=== PATIENT | male | born 1960 | race Hispanic/Latino ===

== ENCOUNTER 2018-09-26 09:53 | Emergency (ER) | payer BC ==
--- NOTE | 2018-09-26 10:54 | Emergency Department Report ---
Minor Respiratory - HPI Chief Complaint: Upper Respiratory Infection Stated Complaint: AYDEN/FEVER Time Seen by Provider: 09/26/18 10:38 Duration: 3 Days Pain Location: Facial Minor Respiratory: Yes Rhinorrhea, Yes Able to Tolerate Fluids, Yes Cough (minor and non productive), Yes Shortness of Breath, No Sore Throat, No Ear Pain, No Sick Contacts, No Hemoptysis, No Chest Pain, No Fever ED Review of Systems ROS: Stated complaint: AYDEN/FEVER Other details as noted in HPI Comment: All other systems reviewed and negative ED Past Medical Hx - Past Medical History Previous Medical History?: Yes Hx Hypertension: Yes - Surgical History Past Surgical History?: No - Social History Smoking Status: Never Smoker Substance Use Type: None - Medications Home Medications: Home Medications Medication Instructions Recorded Confirmed Last Taken Type Acetaminophen/Codeine [Tylenol 1 tab PO Q6H PRN #12 tab 09/08/18 Unknown Rx /Codeine # 3 tab] Ibuprofen [Motrin 800 MG tab] 800 mg PO Q8HR PRN #21 tablet 09/08/18 Unknown Rx ALBUTEROL Inhaler (OR & NICU) 2 puff IH QID PRN #1 inhalation 09/26/18 Unknown Rx [ProAir HFA Inhaler] Amoxicillin/Potassium Clav 1 each PO BID #14 tablet 09/26/18 Unknown Rx [Augmentin 875-125 Tablet] HYDROcodone/APAP 5-325 [[place] 1 each PO Q4HR PRN #1 tablet 09/26/18 Unknown Rx 5/325] predniSONE [Deltasone] 20 mg PO QDAY #5 tab 09/26/18 Unknown Rx Minor Respiratory Exam - Exam General: Vital signs noted. No distress. Alert and acting appropriately. HEENT: Yes Moist Mucous Membranes, Yes Maxillary Tenderness (with decreased transillumination of the sinuses), No Pharyngeal Erythema, No Pharyngeal Exudates, No Rhinorrhea, No Conjuctival Injection, No Frontal Tenderness Ear: Neither TM Bulge, Neither TM Erythema, Neither EAC Pain, Neither EAC Discharge Neck: Yes Supple, No Adenopathy Lungs: Yes Good Air Exchange, No Wheezes, No Ronchi, No Stridor, No Cough, No Labored Respirations, No Retractions, No Use of Accessory Muscles, No Other Abnormal Lung Sounds Heart: Yes Regular, No Murmur Abdomen: Yes Normal Bowel Sounds, No Tenderness, No Peritoneal Signs Skin: No Rash, No Edema Neurologic: Alert and oriented, no deficits. Musculoskeletal: Unremarkable. ED Course Vital Signs 09/26/18 10:03 Temperature 98.1 F Pulse Rate 82 Respiratory 18 Rate Blood Pressure 153/75 O2 Sat by Pulse 96 Oximetry Critical care attestation.: If time is entered above; I have spent that time in minutes in the direct care of this critically ill patient, excluding procedure time. ED Disposition Clinical Impression: Acute rhinosinusitis, Upper respiratory infection Disposition: -01 TO HOME OR SELFCARE Is pt being admited?: No Does the pt Need Aspirin: No Condition: Stable Instructions: Acute Bacterial Rhinosinusitis (ED) Referrals: PRIMARY CARE, [Primary Care Provider] - 3-5 Days Time of Disposition: 10:54
== END 2018-09-26 10:59 | disposition home or self-care (01) ==
LOC: ED 09:53
CPT/HCPCS: 99281

== ENCOUNTER 2018-11-22 07:19 | Emergency (ER) | payer BC ==
--- NOTE | 2018-11-22 08:32 | Emergency Department Report ---
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 Patient has been taking Nasonex at home with minimal relief. ED Review of Systems ROS: Stated complaint: TROUBLE BREATHING Other details as noted in HPI Comment: All other systems reviewed and negative ED Past Medical Hx - Past Medical History Hx Hypertension: Yes - Social History Smoking Status: Never Smoker Substance Use Type: None - Medications Home Medications: Home Medications Medication Instructions Recorded Confirmed Last Taken Type Acetaminophen/Codeine [Tylenol 1 tab PO Q6H PRN #12 tab 09/08/18 Unknown Rx /Codeine # 3 tab] Ibuprofen [Motrin 800 MG tab] 800 mg PO Q8HR PRN #21 tablet 09/08/18 Unknown Rx ALBUTEROL Inhaler (OR & NICU) 2 puff IH QID PRN #1 inhalation 09/26/18 Unknown Rx [ProAir HFA Inhaler] Amoxicillin/Potassium Clav 1 each PO BID #14 tablet 09/26/18 Unknown Rx [Augmentin 875-125 Tablet] HYDROcodone/APAP 5-325 [[place] 1 each PO Q4HR PRN #1 tablet 09/26/18 Unknown Rx 5/325] predniSONE [Deltasone] 20 mg PO QDAY #5 tab 09/26/18 Unknown Rx ALBUTEROL Inhaler (OR & NICU) 2 puff IH QID PRN #1 inhalation 11/22/18 Unknown Rx [ProAir HFA Inhaler] Azithromycin [Zithromax Z-DAYNA] 250 mg PO DAILY #6 tablet 11/22/18 Unknown Rx predniSONE [Deltasone] 20 mg PO QDAY #5 tab 11/22/18 Unknown Rx Minor Respiratory Exam - Exam General: Vital signs noted. No distress. Alert and acting appropriately. HEENT: Yes Moist Mucous Membranes, Yes Frontal Tenderness, No Pharyngeal Erythema, No Pharyngeal Exudates, No Rhinorrhea, No Conjuctival Injection, No Maxillary Tenderness Ear: Neither TM Bulge, Neither TM Erythema, Neither EAC Pain, Neither EAC Discharge Neck: Yes Supple, No Adenopathy Lungs: Yes Good Air Exchange, No Wheezes, No Ronchi, No Stridor, No Cough, No Labored Respirations, No Retractions, No Use of Accessory Muscles, No Other Abnormal Lung Sounds Heart: Yes Regular, No Murmur Abdomen: Yes Normal Bowel Sounds, No Tenderness, No Peritoneal Signs Skin: No Rash, No Edema Neurologic: Alert and oriented, no deficits. Musculoskeletal: Unremarkable. ED Course Vital Signs 11/22/18 07:21 Temperature 97.9 F Pulse Rate 77 Respiratory 16 Rate Blood Pressure 161/83 [Left] O2 Sat by Pulse 96 Oximetry ED Medical Decision Making - Medical Decision Making Patient was some sinus irritation. Patient started on Z-Dayna and as well as a short course of steroids and be discharged home. Critical care attestation.: If time is entered above; I have spent that time in minutes in the direct care of this critically ill patient, excluding procedure time. ED Disposition Clinical Impression: Sinus congestion Disposition: DC-01 TO HOME OR SELFCARE Is pt being admited?: No Does the pt Need Aspirin: No Condition: Stable Instructions: Sinusitis (ED) Referrals: PRIMARY CARE, [Primary Care Provider] - 3-5 Days Time of Disposition: 08:32
== END 2018-11-22 08:36 | disposition home or self-care (01) ==
LOC: ED 07:19
DX: R09.81 Nasal congestion (principal)
CPT/HCPCS: 99282

== ENCOUNTER 2019-01-22 08:26 | Outpatient (CLI) | payer BC ==
[2019-01-22 10:05] LABS: Hematocrit 43.3 % (35.5-45.6); Hemoglobin 14.5 gm/dl (11.8-15.2); Mean Corpuscular HGB Conc 33 % (32-34); Mean Corpuscular Volume 87 fl (84-94); Platelet Count 215 K/mm3 (140-440); Red Blood Count 4.97 M/mm3 (3.65-5.03); Red Cell Distribution Width 14.5 % (13.2-15.2)
[2019-01-22 10:15] LABS: Alanine Aminotransferase 30 units/L (7-56); Albumin 4.3 g/dL (3.9-5); BUN/Creatinine Ratio 30; Blood Urea Nitrogen 24 mg/dL (9-20); Calcium 8.8 mg/dL (8.4-10.2); Chol/HDL Ratio 3.67 %; HDL Cholesterol 40 mg/dL (40-59); Hemolysis Index 3; LDL Cholesterol,Direct 109 mg/dL (50-130)
== END 2019-01-22 08:27 | disposition home or self-care (01) ==
LOC: LAB 08:26
PROVIDERS: ATTEND Internal Medicine
DX: E11.9 Type 2 diabetes mellitus without complications (principal); I10 Essential (primary) hypertension; E66.01 Morbid (severe) obesity due to excess calories; E78.5 Hyperlipidemia, unspecified; K29.70 Gastritis, unspecified, without bleeding
CPT/HCPCS: 36415; 80053; 80061; 83036; 85027

== ENCOUNTER 2019-02-28 07:10 | Inpatient (IN) | payer BC ==
[2019-02-28 08:32] LABS: Basophils % (Auto) 0.6 % (0.0-1.8); Eosinophils # (Auto) 0.1 K/mm3 (0.0-0.4); Eosinophils % (Auto) 1.4 % (0.0-4.3); Hematocrit 45.1 % (35.5-45.6); Hemoglobin 15.3 gm/dl (11.8-15.2); Lymphocytes # (Auto) 1.4 K/mm3 (1.2-5.4); Lymphocytes % (Auto) 18.1 % (13.4-35.0); Mean Corpuscular HGB Conc 34 % (32-34); Mean Corpuscular Volume 88 fl (84-94); Monocytes # (Auto) 0.7 K/mm3 (0.0-0.8); Platelet Count 211 K/mm3 (140-440); Red Blood Count 5.15 M/mm3 (3.65-5.03); Red Cell Distribution Width 14.6 % (13.2-15.2)
[2019-02-28 08:39] LABS: BUN/Creatinine Ratio 28; Blood Urea Nitrogen 22 mg/dL (9-20); Calcium 8.9 mg/dL (8.4-10.2); Hemolysis Index 42
[2019-02-28 09:17] LABS: INR 1.02 (0.87-1.13)
[2019-02-28 09:18] LABS: Partial Thromboplastin Time 27.5 Sec. (24.2-36.6)
[2019-02-28 09:40] LABS: Creatine Kinase MB 5.4 ng/mL (0.0-4.0)
[2019-02-28 09:41] LABS: Alanine Aminotransferase 35 units/L (7-56); Albumin 4.3 g/dL (3.9-5)
[2019-02-28 09:42] LABS: Bilirubin,Direct < 0.2 mg/dL (0-0.2)
--- NOTE | 2019-02-28 11:00 | Emergency Department Report ---
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 He persistently states that he thinks his problem is due to a "panic attack". He denies breathing rapidly or having peripheral or circ umoral paresthesias during the episode. He denies cough or chest pain. He states that he had a stress test "because he is anxious "a few years ago. This may have been done by [facility] and [facility]. He is uncertain. He does not report exertional dyspnea. He has been seen here a few times this year with URI type symptoms. He was prescribed bronchodilators but does not really recall exactly using inhalers are bronchodilators. He states the episode this morning lasted about 3-4 minutes. -: Sudden (somewhat acute onset, no complaints of pain) Severity scale (0 -10): 0 Consistency: now resolved Improves with: none Worsens with: none Associated Symptoms: denies other symptoms Treatments Prior to Arrival: none - Related Data Previous Rx's Medication Instructions Recorded Last Taken Type Acetaminophen/Codeine [Tylenol 1 tab PO Q6H PRN #12 tab 09/08/18 Unknown Rx /Codeine # 3 tab] Ibuprofen [Motrin 800 MG tab] 800 mg PO Q8HR PRN #21 tablet 09/08/18 Unknown Rx ALBUTEROL Inhaler (OR & NICU) 2 puff IH QID PRN #1 inhalation 09/26/18 Unknown Rx [ProAir HFA Inhaler] Amoxicillin/Potassium Clav 1 each PO BID #14 tablet 09/26/18 Unknown Rx [Augmentin 875-125 Tablet] HYDROcodone/APAP 5-325 [[place] 1 each PO Q4HR PRN #1 tablet 09/26/18 Unknown Rx 5/325] predniSONE [Deltasone] 20 mg PO QDAY #5 tab 09/26/18 Unknown Rx ALBUTEROL Inhaler (OR & NICU) 2 puff IH QID PRN #1 inhalation 11/22/18 Unknown Rx [ProAir HFA Inhaler] Azithromycin [Zithromax Z-DAYNA] 250 mg PO DAILY #6 tablet 11/22/18 Unknown Rx predniSONE [Deltasone] 20 mg PO QDAY #5 tab 11/22/18 Unknown Rx Allergies Allergy/AdvReac Type Severity Reaction Status Date / Time No Known Allergies Allergy Unverified 02/28/19 07:12 ED Review of Systems ROS: Stated complaint: AYDEN Other details as noted in HPI Constitutional: denies: chills, fever Eyes: denies: eye pain, eye discharge, vision change ENT: denies: ear pain, throat pain Respiratory: shortness of breath. denies: cough, wheezing Cardiovascular: denies: chest pain, palpitations Endocrine: no symptoms reported Gastrointestinal: denies: abdominal pain, nausea, diarrhea Genitourinary: denies: urgency, dysuria Musculoskeletal: denies: back pain, joint swelling, arthralgia Skin: denies: rash, lesions Neurological: denies: headache, weakness, paresthesias Psychiatric: denies: anxiety, depression Hematological/Lymphatic: denies: easy bleeding, easy bruising ED Past Medical Hx - Past Medical History Hx Hypertension: Yes - Surgical History Additional Surgical History: HERNIA - Family History Family history: other (DVT and/or PVD) - Social History Smoking Status: Never Smoker Substance Use Type: None - Medications Home Medications: Home Medications Medication Instructions Recorded Confirmed Last Taken Type Acetaminophen/Codeine [Tylenol 1 tab PO Q6H PRN #12 tab 09/08/18 Unknown Rx /Codeine # 3 tab] Ibuprofen [Motrin 800 MG tab] 800 mg PO Q8HR PRN #21 tablet 09/08/18 Unknown Rx ALBUTEROL Inhaler (OR & NICU) 2 puff IH QID PRN #1 inhalation 09/26/18 Unknown Rx [ProAir HFA Inhaler] Amoxicillin/Potassium Clav 1 each PO BID #14 tablet 09/26/18 Unknown Rx [Augmentin 875-125 Tablet] HYDROcodone/APAP 5-325 [[place] 1 each PO Q4HR PRN #1 tablet 09/26/18 Unknown Rx 5/325] predniSONE [Deltasone] 20 mg PO QDAY #5 tab 09/26/18 Unknown Rx ALBUTEROL Inhaler (OR & NICU) 2 puff IH QID PRN #1 inhalation 11/22/18 Unknown Rx [ProAir HFA Inhaler] Azithromycin [Zithromax Z-DAYNA] 250 mg PO DAILY #6 tablet 11/22/18 Unknown Rx predniSONE [Deltasone] 20 mg PO QDAY #5 tab 11/22/18 Unknown Rx ED Physical Exam - General Limitations: No Limitations General appearance: alert, in no apparent distress, obese - Head Head exam: Present: atraumatic, normocephalic - Eye Eye exam: Present: normal appearance, PERRL, EOMI - ENT ENT exam: Present: mucous membranes moist - Neck Neck exam: Present: normal inspection. Absent: tenderness, meningismus - Respiratory Respiratory exam: Present: normal lung sounds bilaterally. Absent: respiratory distress - Cardiovascular Cardiovascular Exam: Present: regular rate, normal rhythm. Absent: systolic murmur, diastolic murmur, rubs, gallop - GI/Abdominal GI/Abdominal exam: Present: soft, normal bowel sounds. Absent: distended, tenderness, guarding, rebound, rigid - Rectal Rectal exam: Present: deferred - Extremities Exam Extremities exam: Present: normal inspection - Back Exam Back exam: Present: normal inspection - Neurological Exam Neurological exam: Present: alert, oriented X3, CN II-XII intact. Absent: motor sensory deficit - Psychiatric Psychiatric exam: Present: normal affect, normal mood - Skin Skin exam: Present: warm, dry, intact, normal color. Absent: rash ED Course Vital Signs 02/28/19 02/28/19 02/28/19 07:20 07:32 07:42 Temperature 97.5 F L Pulse Rate 85 82 Respiratory 22 21 22 Rate Blood Pressure 168/65 O2 Sat by Pulse 98 99 98 Oximetry 02/28/19 02/28/19 02/28/19 08:00 08:31 09:00 Temperature Pulse Rate 75 87 71 Respiratory 22 35 H 11 L Rate Blood Pressure 133/73 138/77 137/78 O2 Sat by Pulse 99 98 95 Oximetry 02/28/19 02/28/19 02/28/19 09:31 10:00 10:31 Temperature Pulse Rate 73 68 96 H Respiratory 12 12 19 Rate Blood Pressure 137/78 139/81 139/81 O2 Sat by Pulse 92 95 94 Oximetry 02/28/19 02/28/19 02/28/19 11:00 11:31 12:00 Temperature Pulse Rate 66 65 68 Respiratory 12 12 12 Rate Blood Pressure 130/82 139/81 137/77 O2 Sat by Pulse 99 98 98 Oximetry 02/28/19 02/28/19 02/28/19 12:30 13:01 13:38 Temperature Pulse Rate 75 76 Respiratory 17 12 Rate Blood Pressure 137/77 140/81 140/81 O2 Sat by Pulse 97 95 87 Oximetry 02/28/19 02/28/19 14:00 14:31 Temperature Pulse Rate 76 80 Respiratory 11 L 15 Rate Blood Pressure 118/73 140/81 O2 Sat by Pulse 97 98 Oximetry - Reevaluation(s) Reevaluation #1: Patient has remained clinically stable. His pulse oximetry is 98%. We discussed his diagnosis of pulmonary embolism. Further workup, choice of anticoagulation and disposition will be per Dr. Bruce. 02/28/19 15:07 ED Medical Decision Making - Lab Data Result diagrams: 02/28/19 07:54 02/28/19 07:54 Laboratory Results - last 24 hr 02/28/19 02/28/19 02/28/19 07:54 07:54 07:54 WBC 7.6 RBC 5.15 H Hgb 15.3 H Hct 45.1 MCV 88 MCH 30 MCHC 34 RDW 14.6 Plt Count 211 Lymph % (Auto) 18.1 [place] % (Auto) 9.0 H Eos % (Auto) 1.4 Baso % (Auto) 0.6 Lymph # 1.4 [place] # 0.7 Eos # 0.1 Baso # 0.0 Seg Neutrophils % 70.9 H Seg Neutrophils # 5.4 PT INR APTT D-Dimer Sodium 140 Potassium 3.7 Chloride 98.6 Carbon Dioxide 27 Anion Gap 18 BUN 22 H Creatinine 0.8 Estimated GFR > 60 BUN/Creatinine Ratio 28 Glucose 129 H Calcium 8.9 Total Bilirubin 0.50 Direct Bilirubin < 0.2 Indirect Bilirubin 0.3 AST 30 ALT 35 Alkaline Phosphatase 102 Total Creatine Kinase 281 H CK-MB (CK-2) 5.4 H CK-MB (CK-2) Rel Index 1.9 Troponin T < 0.010 NT-Pro-B Natriuret Pep 24.81 Total Protein 7.9 Albumin 4.3 Albumin/Globulin Ratio 1.2 02/28/19 08:46 WBC RBC Hgb Hct MCV MCH MCHC RDW Plt Count Lymph % (Auto) [place] % (Auto) Eos % (Auto) Baso % (Auto) Lymph # [place] # Eos # Baso # Seg Neutrophils % Seg Neutrophils # PT 14.0 INR 1.02 APTT 27.5 D-Dimer < 135.0 Sodium Potassium Chloride Carbon Dioxide Anion Gap BUN Creatinine Estimated GFR BUN/Creatinine Ratio Glucose Calcium Total Bilirubin Direct Bilirubin Indirect Bilirubin AST ALT Alkaline Phosphatase Total Creatine Kinase CK-MB (CK-2) CK-MB (CK-2) Rel Index Troponin T NT-Pro-B Natriuret Pep Total Protein Albumin Albumin/Globulin Ratio - EKG Data -: EKG Interpreted by Me EKG shows normal: sinus rhythm, axis, intervals, QRS complexes, ST-T waves Rate: normal - EKG Data Interpretation: no acute changes - Radiology Data interpreted by me: IMPRESSION: Slightly limited contrast bolus. Small pulmonary arterial filling defects are identified in the lingula and both lower lobes consistent with small pulmonary emboli. No large central pulmonary embolus. Critical care attestation.: If time is entered above; I have spent that time in minutes in the direct care of this critically ill patient, excluding procedure time. ED Disposition Clinical Impression: Pulmonary embolism Qualifiers: Pulmonary embolism type: unspecified Chronicity: acute Acute cor pulmonale presence: without acute cor pulmonale Qualified Code(s): I26.99 - Other pulmonary embolism without acute cor pulmonale Disposition: 09 OP ADMIT IP TO THIS HOSP Is pt being admited?: Yes Does the pt Need Aspirin: No Condition: Stable Referrals: ABDOUL WOLFE MD [Primary Care Provider] - 3-5 Days Time of Disposition: 15:09
[2019-02-28] MEDS ORDERED: ATIVAN IV ONE (11:56)
--- NOTE | 2019-02-28 12:08 | XRay Report ---
ROUTINE CHEST, TWO VIEWS: HISTORY: Difficulty in breathing. The trachea, heart, mediastinal contour, lung strauss and bony thorax are unremarkable. IMPRESSION: No acute cardiopulmonary process is identified.
--- NOTE | 2019-02-28 14:07 | Cat Scan Report ---
CTA CHEST: HISTORY: Difficulty in breathing. COMPARISON: none. TECHNIQUE: Helical CT in 1.25mm intervals following IV contrast. Pulmonary embolus protocol. Sagittal and coronal reformatted images. Rotational MIP images. FINDINGS: Contrast bolus is slightly limited. There is poor opacification of the distal, small pulmonary arteries. Having said that, a few suspicious pulmonary arterial filling defects are identified. A filling defect is identified in the second order pulmonary artery leading to the lingula. Filling defects are identified within second and third order pulmonary artery branches leading to the left lower lobe and right lower lobe. Thyroid gland: Normal. Tracheobronchial tree: Normal. Esophagus: Normal. Heart: Normal size. Pericardium: Normal. Mediastinum: Normal. Lung Weiss: Normal. Pleural Spaces: Normal. Musculoskeletal: Intact. Moderate thoracic spondylosis. IMPRESSION: Slightly limited contrast bolus. Small pulmonary arterial filling defects are identified in the lingula and both lower lobes consistent with small pulmonary emboli. No large central pulmonary embolus.
--- NOTE | 2019-02-28 14:28 | Cat Scan Report ---
CT ANGIOGRAM ABDOMEN AND PELVIS History: Difficulty in breathing. Technique: Helical CT following IV contrast. Sagittal and coronal reformatted images. Findings: The aorta, bilateral iliac systems, celiac axis, SMA, SYLVIA and bilateral single renal arteries are widely patent with less than 20% stenosis. No evidence for dissection, aneurysm or significant atherosclerotic disease. Multiple tiny gallstones are identified in the neck of the gallbladder. No abnormal dilatation or inflammation. The liver, pancreas, spleen and adrenal glands are within normal limits. There are a few scattered simple cysts in both kidneys with the largest measuring 2 cm at the inferior pole of the right kidney. The ureters and bladder are unremarkable. The bowel loops are normal caliber and wall thickness. No obvious mass or focal inflammation. The appendix is not confidently identified. No evidence for ascites, adenopathy or inflammatory changes. The bony structures are intact. Small umbilical hernia containing fat is noted. IMPRESSION: Unremarkable CTA of the abdomen and pelvis. Cholelithiasis. Few simple renal cysts. Umbilical hernia containing fat.
--- NOTE | 2019-02-28 16:51 | Vascular Lab Report ---
PROCEDURE: VL VENOUS DUPLEX LE BILAT TECHNIQUE: Duplex Doppler sonography of the BILATERAL lower extremities. Cruz scale imaging with and without compression, spectral waveform analysis with and without augmentation, and color flow Dopple r were employed. HISTORY: pulmonary embolism search for source COMPARISONS: None FINDINGS: RIGHT lower EXTREMITY: Deep Venous Thrombus: None Superficial Venous Thrombus: None Venous valvular incompetence: None Soft tissue abnormality: None LEFT lower EXTREMITY: Deep Venous Thrombus: None Superficial Venous Thrombus: None Venous valvular incompetence: None Soft tissue abnormality: None IMPRESSION: No evidence of deep venous thrombosis in the bilateral lower extremities. This document is electronically signed by Jacki Walsh MD., February 28 2019 04:50:07 PM ET
[2019-02-28] MEDS ORDERED: IBUPROFEN PO PRN (21:53)
[2019-02-28] MEDS ORDERED: ZOFRAN IV PRN (21:53)
[2019-02-28] MEDS ORDERED: TYLENOL PO PRN (21:53)
[2019-02-28] MEDS ORDERED: DILAUDID IV PRN (21:53)
[2019-02-28] MEDS ORDERED: SODIUM CHLORIDE FLUSH SYRINGE 10 ML IV PRN (21:53)
[2019-02-28] MEDS ORDERED: PEPCID IV SCH (22:00)
[2019-02-28] MEDS ORDERED: LOVENOX SUB-Q SCH (22:30)
[2019-02-28] MEDS: CARDIZEM CD PO SCH (22:51)
[2019-02-28] MEDS: SODIUM CHLORIDE FLUSH SYRINGE 10 ML IV SCH (23:13)
[2019-02-28] MEDS: ELIQUIS PO SCH (23:13)
[2019-02-28] MEDS: D5NS 1,000 ML IV SCH (23:15)
[2019-02-28] MEDS: WELLBUTRIN SR PO SCH (23:40)
--- NOTE | 2019-03-01 05:27 | Event Note ---
Date: 02/28/19 See H/p in reports Acute Pulmonary Embolism
--- NOTE | 2019-03-01 05:51 | History and Physical Report ---
CHIEF COMPLAINT: Increasing shortness of breath this morning. 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 The patient was getting difficulty in breathing on minimal exertion. The patient initially thought it was a panic attack. No cough or chest pain. The patient had a stress test a couple of years ago, which was negative. The patient has upper respiratory infections recently and was prescribed bronchodilators. No recent travel. The patient basically has chest pain on exertion and minimal exertion, which is unusual for him. PAST MEDICAL HISTORY: Significant for asthma, bronchitis and also hypertension, depression, generalized anxiety disorder and gastroesophageal reflux disease. PAST SURGICAL HISTORY: Hernia repair. FAMILY HISTORY: The patient's family has a strong history of pulmonary embolisms and recurrent DVTs. The patient is not sure about the diagnosis, but he says that his blood is thickened, on anticoagulants. SOCIAL HISTORY: Does not smoke. No alcohol, no recreational drugs. REVIEW OF SYSTEMS: Significant for shortness of breath on very minimal exertion. No chest pain. Otherwise, no fever or chills. No cough. Otherwise, review of systems is negative. A 14-point review of systems is done. PHYSICAL EXAMINATION: GENERAL: Young elderly male, cooperative during examination. VITAL SIGNS: Blood pressure is 140/81, temperature is 98.4, pulse is 80, respirations are 15. HEENT: Unremarkable. Pupils equal and reactive. NECK: Supple, no lymphadenopathy, no thyromegaly. LUNGS: Clear to auscultation and percussion. Good air entry. CARDIOVASCULAR: S1, S2 heard. No gallop, no murmur, no rub. Apical impulse in left fifth intercostal space and midclavicular line. ABDOMEN: Soft and benign. No hepatosplenomegaly. Hernial orifices were normal. EXTREMITIES: Good pedal pulses. No pedal edema. SKIN: Normal. LABORATORY DATA: Significant for white count of 7.6, hemoglobin of 15.3, hematocrit of 45.1, platelet count of 211. Electrolytes are normal. Glucose 129, slightly high. Total CK is 281. CK-MB is 5.4. EKG shows sinus rhythm, normal heart rate. CT of the abdomen and pelvis is unremarkable. CT of the chest shows small pulmonary arterial filling defects identified in the lingula and both lower lobes consistent with small pulmonary emboli. No large central pulmonary embolus. Chest x-ray, no acute findings. ASSESSMENT AND PLAN: 1. Acute pulmonary embolism. The patient started on Lovenox 100 mg subcutaneous q. 12 and also Eliquis 10 mg q. 12. The patient to be discharged on Eliquis in 24-48 hours. The patient is stable, otherwise. 2. Hypercoagulable state. Protein C, protein S, and lupus anticoagulant profile ordered. The patient may have to be on Eliquis lifelong given the family history of clotting disorders. 3. Hypertension. Continue antihypertensives in the form of diltiazem 240 b.i.d. and lisinopril with hydrochlorothiazide 20/12.5 daily and potassium 10 mEq daily. 4. Depression. Continue Wellbutrin-SR 150 b.i.d. 5. Generalized anxiety disorder. Continue Xanax 0.25 daily. 6. Deep venous thrombosis prophylaxis. The patient is already on Lovenox and Eliquis and Protonix, which can fit into gastrointestinal prophylaxis. In summary, the patient has acute PE with a small vessel pulmonary embolism. No large vessel involved. Depression and generalized anxiety disorder and GERD. The patient started on Lovenox and Eliquis, to be discharged on Eliquis, hypercoagulable workup ordered. JOB# [id number] [facility]
[2019-03-01 08:09] LABS: Basophils # (Auto) 0.1 K/mm3 (0.0-0.1); Basophils % (Auto) 0.8 % (0.0-1.8); Eosinophils # (Auto) 0.1 K/mm3 (0.0-0.4); Hematocrit 43.5 % (35.5-45.6); Hemoglobin 14.5 gm/dl (11.8-15.2); Lymphocytes # (Auto) 1.8 K/mm3 (1.2-5.4); Lymphocytes % (Auto) 28.6 % (13.4-35.0); Mean Corpuscular HGB Conc 33 % (32-34); Mean Corpuscular Volume 88 fl (84-94); Monocytes # (Auto) 0.8 K/mm3 (0.0-0.8); Monocytes % (Auto) 12.5 % (0.0-7.3); Platelet Count 206 K/mm3 (140-440); Red Blood Count 4.96 M/mm3 (3.65-5.03); Red Cell Distribution Width 14.4 % (13.2-15.2)
[2019-03-01] MEDS: XANAX PO PRN ×2 (08:15→17:27)
--- NOTE | 2019-03-01 08:26 | Progress Note ---
Assessment and Plan Assessment and plan: Patient is a 58 yo man who is an employee here at [employer] with a history of asthma, WAYNE, GERD and hypertension who presented to ED with SOB, chest pains. He thought it was a panic attack. He was found to have acute PE. * CTA abd/pelvis IMPRESSION: Unremarkable CTA of the abdomen and pelvis. Cholelithiasis. Few simple renal cysts. Umbilical hernia containing fat. * CTA chest IMPRESSION: Slightly limited contrast bolus. Small pulmonary arterial filling defects are identified in the lingula and both lower lobes consistent with small pulmonary emboli. No large central pulmonary embolus. * Venous leg dopplers IMPRESSION: No evidence of deep venous thrombosis in the bilateral lower extremities Acute bilateral pulmonary embolism: treat with A/C with close monitoring. D/C lovenox, continue Eliquis, get ECHO Hypercoagulable state with positive FH per history: consulted Heme/Onc Hypertension: low salt diet, continue to monitor, adjust medications, stopped lisinopril and hctz because drop in BP, continue Cardizem GERD: ppi Obesity, bmi 42.8: lifestyle modification WAYNE/Depression: Wellbutrin and Xanax DVT ppx reviewed. stop the Lovenox, continue the Eliquis History Interval history: Patient was seen and examined. Follow-up on current diagnosis of PE. No overnight events reported to me. Patient denies any chest pain, shortness breath, nausea/vomiting or severe headaches. Imaging, nursing note, chart, labs and old chart reviewed. Discussed with patient. Hospitalist Physical - Physical exam Narrative exam: Gen: WDWN, bmi 42.8, NAD, Awake, Alert, Orientated HEENT: NCAT, EOMI, PERRL, OP Clear Neck: supple, no adenopathy, no thyromegaly, no JVD CVS/Heart: RRR, normal S1S2, pulses present bilaterally Chest/Lungs: CTA B, Symmetrical chest expansion, good air entry bilaterally GI/Abdomen: soft, NTND, good bowel sounds, no guarding or rebound /Bladder: no suprapubic tenderness, no CVA or paraspinal tenderness Extermity/Skin: no c/c/e, no obvious rash MSK: FROM x 4 Neuro: CN 2-12 grossly intact, no new focal deficits Psych: calm - Constitutional Vitals: Temp Pulse Resp BP Pulse Ox 97.4 F L 68 18 105/59 97 06/07/19 06:02 03/01/19 06:02 03/01/19 06:02 03/01/19 06:02 03/01/19 06:02 Results - Labs CBC & Chem 7: 03/01/19 06:51 02/28/19 07:54 Labs: Laboratory Last Values WBC 6.5 K/mm3 (4.5-11.0) 03/01/19 06:51 RBC 4.96 M/mm3 (3.65-5.03) 03/01/19 06:51 Hgb 14.5 gm/dl (11.8-15.2) 03/01/19 06:51 Hct 43.5 % (35.5-45.6) 03/01/19 06:51 MCV 88 fl (84-94) 03/01/19 06:51 MCH 29 pg (28-32) 03/01/19 06:51 MCHC 33 % (32-34) 03/01/19 06:51 RDW 14.4 % (13.2-15.2) 03/01/19 06:51 Plt Count 206 K/mm3 (140-440) 03/01/19 06:51 Lymph % (Auto) 28.6 % (13.4-35.0) 03/01/19 06:51 Payette % (Auto) 12.5 % (0.0-7.3) H 03/01/19 06:51 Eos % (Auto) 2.0 % (0.0-4.3) 03/01/19 06:51 Baso % (Auto) 0.8 % (0.0-1.8) 03/01/19 06:51 Lymph # 1.8 K/mm3 (1.2-5.4) 03/01/19 06:51 Payette # 0.8 K/mm3 (0.0-0.8) 03/01/19 06:51 Eos # 0.1 K/mm3 (0.0-0.4) 03/01/19 06:51 Baso # 0.1 K/mm3 (0.0-0.1) 03/01/19 06:51 Seg Neutrophils % 56.1 % (40.0-70.0) 03/01/19 06:51 Seg Neutrophils # 3.6 K/mm3 (1.8-7.7) 03/01/19 06:51 PT 14.0 Sec. (12.2-14.9) 02/28/19 08:46 INR 1.02 (0.87-1.13) 02/28/19 08:46 APTT 27.5 Sec. (24.2-36.6) 02/28/19 08:46 < 135.0 ng/mlDDU (0-234) 02/28/19 08:46 Sodium 140 mmol/L (137-145) 02/28/19 07:54 Potassium 3.7 mmol/L (3.6-5.0) 02/28/19 07:54 Chloride 98.6 mmol/L (98-107) 02/28/19 07:54 Carbon Dioxide 27 mmol/L (22-30) 02/28/19 07:54 18 mmol/L 02/28/19 07:54 BUN 22 mg/dL (9-20) H 02/28/19 07:54 0.8 mg/dL (0.8-1.5) 02/28/19 07:54 Estimated GFR > 60 ml/min 02/28/19 07:54 28 % 02/28/19 07:54 Glucose 129 mg/dL (75-100) H 02/28/19 07:54 5.5 % (4-6) 02/28/19 22:36 Calcium 8.9 mg/dL (8.4-10.2) 02/28/19 07:54 0.50 mg/dL (0.1-1.2) 02/28/19 07:54 < 0.2 mg/dL (0-0.2) 02/28/19 07:54 0.3 mg/dL 02/28/19 07:54 AST 30 units/L (5-40) 02/28/19 07:54 ALT 35 units/L (7-56) 02/28/19 07:54 102 units/L (35-129) 02/28/19 07:54 281 units/L (55-170) H 02/28/19 07:54 CK-MB (CK-2) 5.4 ng/mL (0.0-4.0) H 02/28/19 07:54 CK-MB (CK-2) Rel Index 1.9 (0-4) 02/28/19 07:54 < 0.010 ng/mL (0.00-0.029) 02/28/19 07:54 NT-Pro-B Natriuret Pep 24.81 pg/mL (0-900) 02/28/19 07:54 7.9 g/dL (6.3-8.2) 02/28/19 07:54 4.3 g/dL (3.9-5) 02/28/19 07:54 1.2 % 02/28/19 07:54 Active Medications - Current Medications Current Medications: Generic Name Dose Route Start Last Admin Trade Name Freq PRN Reason Stop Dose Admin Acetaminophen 650 mg 02/28/19 21:53 Tylenol PO Q4H PRN Pain MILD(1-3)/Fever >100.5/FLYNN Alprazolam 0.25 mg 02/28/19 22:09 03/01/19 08:15 Xanax PO 0.25 mg DAILY PRN Administration Anxiety Apixaban 10 mg 02/28/19 23:00 02/28/19 23:13 Eliquis PO 10 mg Q12HR LOBO Administration Protocol Aspirin 325 mg 03/01/19 10:00 Aspirin PO DAILY LOBO Bupropion HCl 150 mg 02/28/19 23:00 02/28/19 23:40 Wellbutrin Sr PO 150 mg BID LOBO Administration Citalopram Hydrobromide 20 mg 03/01/19 10:00 Celexa PO DAILY LOBO Diltiazem HCl 240 mg 02/28/19 23:00 02/28/19 22:51 Cardizem Cd PO 240 mg BID LOBO Administration Hydromorphone HCl 0.5 mg 02/28/19 21:53 Dilaudid IV Q3H PRN Pain , Severe (7-10) Dextrose/Sodium Chloride 1,000 mls @ 75 mls/hr 02/28/19 22:00 02/28/19 23:15 D5ns IV 75 mls/hr DIRECT LOBO Administration Lisinopril 20 mg 03/01/19 10:00 Zestril PO QDAY LOBO Ondansetron HCl 4 mg 02/28/19 21:53 Zofran IV Q8H PRN Nausea And Vomiting Pantoprazole Sodium 40 mg 03/01/19 22:00 Protonix PO HS LOBO Potassium Chloride 10 meq 03/01/19 10:00 K-Dur PO DAILY LOBO Sodium Chloride 10 ml 02/28/19 22:00 02/28/19 23:13 Sodium Chloride Flush Syringe 10 Ml IV 10 ml BID LOBO Administration Sodium Chloride 10 ml 02/28/19 21:53 Sodium Chloride Flush Syringe 10 Ml IV PRN PRN LINE FLUSH
[2019-03-01 08:41] LABS: Alanine Aminotransferase 29 units/L (7-56); Albumin 3.8 g/dL (3.9-5); BUN/Creatinine Ratio 22; Blood Urea Nitrogen 20 mg/dL (9-20); Calcium 8.4 mg/dL (8.4-10.2); Hemolysis Index 18
[2019-03-01] MEDS: K-DUR PO SCH (09:41)
[2019-03-01] MEDS: WELLBUTRIN SR PO SCH ×2 (09:41→21:21)
[2019-03-01] MEDS: celeXA PO SCH (09:41)
[2019-03-01] MEDS: ELIQUIS PO SCH ×2 (09:41→21:21)
[2019-03-01] MEDS: CARDIZEM CD PO SCH ×2 (09:44→21:21)
[2019-03-01] MEDS ORDERED: NON-FORMULARY (Lisinopril/Hydrochlorothiazide [Zestoretic 20-12.5 Mg] 20 MG) PO SCH (10:00)
[2019-03-01] MEDS ORDERED: ASPIRIN PO SCH (10:00)
[2019-03-01] MEDS ORDERED: ZESTRIL PO SCH (10:00)
[2019-03-01] MEDS ORDERED: HCTZ PO SCH (10:00)
[2019-03-01] MEDS: D5NS 1,000 ML IV SCH (11:46)
[2019-03-01] MEDS: SODIUM CHLORIDE FLUSH SYRINGE 10 ML IV SCH ×2 (11:46→21:29)
--- NOTE | 2019-03-01 16:54 | Event Note ---
Date: 03/01/19 [id number]
[2019-03-01] MEDS ORDERED: PROTONIX PO SCH (22:00)
[2019-03-02] MEDS: D5NS 1,000 ML IV SCH (04:21)
[2019-03-02 06:14] VITALS: BP 129/79
[2019-03-02] MEDS: K-DUR PO SCH (09:22)
[2019-03-02] MEDS: CARDIZEM CD PO SCH (09:22)
[2019-03-02] MEDS: WELLBUTRIN SR PO SCH (09:28)
[2019-03-02] MEDS: ELIQUIS PO SCH (09:28)
[2019-03-02] MEDS: celeXA PO SCH (09:28)
[2019-03-02] MEDS: SODIUM CHLORIDE FLUSH SYRINGE 10 ML IV SCH (09:29)
[2019-03-02] MEDS: XANAX PO PRN (12:07)
--- NOTE | 2019-03-02 14:15 | Discharge Summary ---
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 He thought it was a panic attack. He was found to have acute PE. * CTA abd/pelvis IMPRESSION: Unremarkable CTA of the abdomen and pelvis. Cholelithiasis. Few simple renal cysts. Umbilical hernia containing fat. * CTA chest IMPRESSION: Slightly limited contrast bolus. Small pulmonary arterial filling defects are identified in the lingula and both lower lobes consistent with small pulmonary emboli. No large central pulmonary embolus. * Venous leg dopplers IMPRESSION: No evidence of deep venous thrombosis in the bilateral lower extremities Acute bilateral pulmonary embolism: treat with A/C with close monitoring. D/C lovenox, continue Eliquis, get ECHO Hypercoagulable state with positive FH per history: consulted Heme/Onc, Dr. Devine has seen and will follow his a/c Hypertension: low salt diet, continue to monitor, adjust medications, stopped lisinopril and hctz because drop in BP, continue Cardizem GERD: ppi Obesity, bmi 42.8: lifestyle modification WAYNE/Depression: Wellbutrin and Xanax Disposition: DC-01 TO HOME OR SELFCARE Time spent for discharge: 35 minutes Core Measure Documentation - Palliative Care Palliative Care/ Comfort Measures: Not Applicable - Core Measures Any of the following diagnoses?: DVT/PE - VTE Discharge Requirements Deep Vein Thrombosis/Pulmonary Embolism Present on Admission: Yes Has pt received <5 days of overlap therapy or INR<2.0: No (on Eliquis) Anticoagulant overlap therapy prescribed at discharge: No Contraindication No Overlap Therapy order at DC: Not Indicated Exam - Physical Exam Narrative exam: Gen: WDWN, bmi 42.8, NAD, Awake, Alert, Orientated HEENT: NCAT, EOMI, PERRL, OP Clear Neck: supple, no adenopathy, no thyromegaly, no JVD CVS/Heart: RRR, normal S1S2, pulses present bilaterally Chest/Lungs: CTA B, Symmetrical chest expansion, good air entry bilaterally GI/Abdomen: soft, NTND, good bowel sounds, no guarding or rebound /Bladder: no suprapubic tenderness, no CVA or paraspinal tenderness Extermity/Skin: no c/c/e, no obvious rash MSK: FROM x 4 Neuro: CN 2-12 grossly intact, no new focal deficits Psych: calm - Constitutional Vitals: Temp Pulse Resp BP Pulse Ox 97.5 F L 71 20 129/79 98 03/02/19 06:12 03/02/19 06:12 03/02/19 06:12 03/02/19 09:22 03/02/19 06:12 Plan Activity: other (no strenous activity unless cleared by Dr. Devine, return to work limit duty until cleared by Dr. Devine) Diet: low salt Follow up with: ABDOUL WOLFE MD [Primary Care Provider] - 3-5 Days TALIB DEVINE MD [Staff Physician] - 7 Days Forms: Work/School Release Form Prescriptions: Apixaban [Eliquis] 2 tab PO Q12HR #10 tablet ALPRAZolam [Xanax TAB] 0.25 mg PO DAILY PRN #15 tablet PRN Reason: Anxiety
--- NOTE | 2019-03-02 16:46 | Consultation ---
REFERRING PHYSICIAN: Dr. Bruce. REASON FOR CONSULTATION: Pulmonary embolism. HISTORY OF PRESENT ILLNESS: I saw the patient, a 58-year-old male on the medical floor. The patient has been having exertional shortness of breath for a few months. However, this week, he was not well and he took a day off. Next day when he came, he was having shortness of breath on exertion and palpitations and when it did not improve, he came to the ER on . He was found to have bilateral pulmonary embolism. I have been asked to admit the patient for same. Anticoagulation has been initiated. As per the patient, leg Doppler was done and he was told it was negative. At this time, no headache, no visual disturbances, no ear discharge, no chest pain. Palpitations have improved. Shortness of breath has improved. No abdominal pain. No vomiting. No diarrhea. No dysuria. PAST MEDICAL HISTORY: Asthma, bronchitis, hypertension, sleep apnea, anxiety disorder and depression. PAST SURGICAL HISTORY: Hernia surgery. FAMILY HISTORY: Factor V Leiden mutation present. Multiple family members have DVTs and PEs. The patient states he was also tested and he was positive, but he was advised aspirin at that time. SOCIAL HISTORY: No history of tobacco or alcohol usage. REVIEW OF SYSTEMS: The patient denies any recent long distance travel, new medications, surgeries or flight. The patient said that a few months ago, he had a bruise and hematoma in the leg. ALLERGIES: No known drug allergy. MEDICATIONS AT THIS TIME: Includes alprazolam, Eliquis, Celexa, diltiazem, potassium. PHYSICAL EXAMINATION: VITAL SIGNS: Temperature 98, pulse 70, respirations 18, BP 122/83. HEENT: No pallor. No icterus. NECK: No neck lymph nodes. HEART: S1, S2. LUNGS: Clear to auscultation. ABDOMEN: Soft, obese. EXTREMITIES: No calf tenderness. NEUROLOGIC: Alert, awake, oriented. LABORATORY DATA: White cell 6, hemoglobin 14, MCV 88, platelets 206. PT/INR normal. Potassium 4.2, creatinine 0.9, calcium 8.4, bilirubin 0.5. AST, ALT normal. AST, ALT normal. RADIOLOGY: Abdomen and pelvis CT shows unremarkable, few renal cysts. CTA chest, small pulmonary arterial filling in the lingula and both lower lobes consistent with small pulmonary embolism. No large central pulmonary embolus seen. Leg Doppler negative. ASSESSMENT: 1. Lingual and bilateral lower lobe pulmonary embolism. No large pulmonary embolism. The patient is on Eliquis. The patient has a family history of factor V Leiden. The patient states he was also positive. We will investigate this on an outpatient basis. The patient is obese, this may have a role and the duration of anticoagulation would be 6 months to 1 year. After that due to his risk factors, he may need a lower dose long-term anticoagulation. We will investigate this on an outpatient basis. The patient is obese, this may have a role and the duration of anticoagulation would be 6 months to 1 year. After that due to his risk factors, he may need a lower dose long-term anticoagulation. 2. History of obesity, sleep apnea. 3. History of bronchitis, asthma. 4. History of hypertension. 5. History of anxiety/depression. 6. History of gastroesophageal reflux disease. PLAN: I will follow the patient during inpatient stay and then in the clinical setting. Once stable, he will be discharged and we will follow him in the clinic for hypercoagulable investigations. JOB# [id number] FLORA/EVANS
[2019-03-04 20:53] LABS: Protein S, Free 21 % normal (57-171); Protein S, Total 75 % normal (70-140)
== END 2019-03-02 15:45 | disposition home or self-care (01) | DRG 176 ==
LOC: ED 07:10 → 3A 15:12
PROVIDERS: ADMIT Internal Medicine; ATTEND Internal Medicine
DX: I26.99 Other pulmonary embolism without acute cor pulmonale (principal); Z68.41 Body mass index [BMI] 40.0-44.9, adult; D68.59 Other primary thrombophilia; I10 Essential (primary) hypertension; E66.9 Obesity, unspecified; J45.909 Unspecified asthma, uncomplicated; K21.9 Gastro-esophageal reflux disease without esophagitis; F41.1 Generalized anxiety disorder; K80.20 Calculus of gallbladder without cholecystitis without obstruction; N28.1 Cyst of kidney, acquired
CPT/HCPCS: 36415; 71046; 71275; 74174; 80048; 80053; 80076; 82550; 82553; 83036; 83880; 84484; 85025; 85305; 85307; 85379; 85610; 85613; 85730; 93005; 93010; 93306; 93970; G0378; J1650; J2060; J7042; Q9967

== ENCOUNTER 2019-04-26 06:25 | Outpatient (CLI) | payer BC ==
[2019-04-26 06:45] LABS: Hematocrit 43.6 % (35.5-45.6); Hemoglobin 14.7 gm/dl (11.8-15.2); Mean Corpuscular HGB Conc 34 % (32-34); Mean Corpuscular Volume 87 fl (84-94); Platelet Count 209 K/mm3 (140-440); Red Cell Distribution Width 14.6 % (13.2-15.2)
[2019-04-26 07:14] LABS: Alanine Aminotransferase 28 units/L (7-56); Albumin 4.4 g/dL (3.9-5); BUN/Creatinine Ratio 21; Blood Urea Nitrogen 17 mg/dL (9-20); Calcium 8.9 mg/dL (8.4-10.2); Hemolysis Index 1
[2019-04-26 09:52] LABS: Basophils % (Manual) 0 % (0.0-1.8); Eosinophils % (Manual) 0 % (0.0-4.3); Platelet Estimate Consistent w Auto; RBC Morphology Normal; Total Cells Counted 100
== END 2019-04-26 06:26 | disposition home or self-care (01) ==
LOC: LAB 06:25
PROVIDERS: ATTEND Internal Medicine Hematology & Oncology
DX: I26.99 Other pulmonary embolism without acute cor pulmonale (principal); I10 Essential (primary) hypertension; Z79.01 Long term (current) use of anticoagulants
CPT/HCPCS: 36415; 80053; 85007; 85379

== ENCOUNTER 2019-06-07 08:17 | Emergency (ER) | payer BC ==
[2019-06-07 08:47] LABS: Basophils # (Auto) 0.1 K/mm3 (0.0-0.1); Basophils % (Auto) 0.9 % (0.0-1.8); Eosinophils # (Auto) 0.1 K/mm3 (0.0-0.4); Eosinophils % (Auto) 1.1 % (0.0-4.3); Hemoglobin 15.3 gm/dl (11.8-15.2); Lymphocytes # (Auto) 1.9 K/mm3 (1.2-5.4); Lymphocytes % (Auto) 26.2 % (13.4-35.0); Mean Corpuscular HGB Conc 33 % (32-34); Mean Corpuscular Volume 87 fl (84-94); Monocytes # (Auto) 0.8 K/mm3 (0.0-0.8); Platelet Count 217 K/mm3 (140-440); Red Blood Count 5.31 M/mm3 (3.65-5.03); Red Cell Distribution Width 15.1 % (13.2-15.2)
[2019-06-07 08:57] LABS: INR 1.14 (0.87-1.13)
[2019-06-07 08:58] LABS: Partial Thromboplastin Time 31.5 Sec. (24.2-36.6)
--- NOTE | 2019-06-07 09:05 | XRay Report ---
CHEST 2 VIEWS INDICATION: Chest Pain. COMPARISON: 02/28/2019 FINDINGS: Support devices: None. Heart: Within normal limits. Lungs/pleura: The lungs are mildly hyperinflated but clear. No evidence for infiltrate, pleural effu yemi or pneumothorax. Additional findings: None. IMPRESSION: No acute cardiopulmonary process. Signer Name: Christian Del Cid Jr, MD Signed: 06/07/2019 9:01 AM Workstation Name: [id number]
[2019-06-07 09:07] LABS: BUN/Creatinine Ratio 26; Blood Urea Nitrogen 21 mg/dL (9-20); Calcium 9.1 mg/dL (8.4-10.2); Hemolysis Index 53
--- NOTE | 2019-06-07 09:44 | Emergency Department Report ---
ED Shortness of Breath HPI - General Chief Complaint: Dyspnea/Respdistress Stated Complaint: SOB Time Seen by Provider: 06/07/19 09:30 Source: patient Mode of arrival: Wheelchair Limitations: No Limitations - History of Present Illness Initial Comments: Patient is a 59-year-old male that presents emergency room with complaints of shortness of breath and dyspnea on exertion. Patient states he was working today and was exerting himself and became anxious and short of breath. Patient states once he sat down and rested the shortness of breath resolved. Patient states that his anxiety took a few more minutes to calm down. Patient states he has a history of anxiety, hypertension, PE and he is eliquis. He states she is compliant with all his medications.. Patient denies chest pain. Patient denies fever. Patient denies nausea vomiting. Patient denies diaphoresis. MD Complaint: shortness of breath, anxiety -: Sudden Severity: severe Consistency: now resolved Improves With: rest Worsens With: exertion Known History Of: other Treatments Prior to Arrival: none - Related Data Home Oxygen Therapy: No Previous Rx's Medication Instructions Recorded Last Taken Type ALPRAZolam [Xanax TAB] 0.25 mg PO DAILY PRN #15 tablet 03/02/19 Unknown Rx Acetaminophen [Acetaminophen TAB] 650 mg PO Q4H PRN tablet 03/02/19 Unknown Rx Apixaban [Eliquis] 2 tab PO Q12HR #10 tablet 03/02/19 Unknown Rx Citalopram [Celexa] 20 mg PO DAILY #30 03/02/19 02/27/19 Rx Pantoprazole [Protonix TAB] 40 mg PO HS #30 03/02/19 02/27/19 Rx dilTIAZem CD [Cardizem CD] 240 mg PO BID #60 03/02/19 02/28/19 Rx Bupropion HCl [Wellbutrin XL] 300 mg PO QAM 15 Days #15 06/07/19 Unknown Rx tab.er.24h Allergies Allergy/AdvReac Type Severity Reaction Status Date / Time No Known Allergies Allergy Verified 02/28/19 22:20 ED Review of Systems ROS: Stated complaint: SOB Other details as noted in HPI Constitutional: denies: chills, fever Eyes: denies: eye pain, eye discharge, vision change ENT: denies: ear pain, throat pain Respiratory: shortness of breath, SOB with exertion. denies: cough, wheezing Cardiovascular: denies: chest pain, palpitations Endocrine: no symptoms reported Gastrointestinal: denies: abdominal pain, nausea, diarrhea Genitourinary: denies: urgency, dysuria Musculoskeletal: denies: back pain, joint swelling, arthralgia Skin: denies: rash, lesions Neurological: denies: headache, weakness, paresthesias Psychiatric: anxiety. denies: depression Hematological/Lymphatic: denies: easy bleeding, easy bruising ED Past Medical Hx - Past Medical History Previous Medical History?: Yes Hx Hypertension: Yes Hx Congestive Heart Failure: No Hx Diabetes: Yes (2019) Hx Pulmonary Embolism: Yes Hx Arthritis: Yes Hx Psychiatric Treatment: Yes (anx) Hx Asthma: No Hx COPD: No Hx HIV: No - Surgical History Past Surgical History?: Yes Additional Surgical History: HERNIA - Social History Smoking Status: Never Smoker Substance Use Type: None - Medications Home Medications: Home Medications Medication Instructions Recorded Confirmed Last Taken Type ALPRAZolam [Xanax TAB] 0.25 mg PO DAILY PRN #15 tablet 03/02/19 Unknown Rx Acetaminophen [Acetaminophen TAB] 650 mg PO Q4H PRN tablet 03/02/19 Unknown Rx Apixaban [Eliquis] 2 tab PO Q12HR #10 tablet 03/02/19 Unknown Rx Citalopram [Celexa] 20 mg PO DAILY #30 03/02/19 02/28/19 02/27/19 Rx Pantoprazole [Protonix TAB] 40 mg PO HS #30 03/02/19 02/28/19 02/27/19 Rx dilTIAZem CD [Cardizem CD] 240 mg PO BID #60 03/02/19 02/28/19 02/28/19 Rx Bupropion HCl [Wellbutrin XL] 300 mg PO QAM 15 Days #15 06/07/19 Unknown Rx tab.er.24h ED Physical Exam - General Limitations: No Limitations General appearance: alert, in no apparent distress - Head Head exam: Present: atraumatic, normocephalic - Eye Eye exam: Present: normal appearance - ENT ENT exam: Present: mucous membranes moist - Neck Neck exam: Present: normal inspection - Respiratory Respiratory exam: Present: normal lung sounds bilaterally. Absent: respiratory distress, wheezes, rales, rhonchi, chest wall tenderness, accessory muscle use, decreased breath sounds - Cardiovascular Cardiovascular Exam: Present: regular rate, normal rhythm. Absent: systolic murmur, diastolic murmur, rubs, gallop - GI/Abdominal GI/Abdominal exam: Present: soft, normal bowel sounds - Rectal Rectal exam: Present: deferred - Extremities Exam Extremities exam: Present: normal inspection - Back Exam Back exam: Present: normal inspection - Neurological Exam Neurological exam: Present: alert, oriented X3 - Psychiatric Psychiatric exam: Present: normal affect, normal mood - Skin Skin exam: Present: warm, dry, intact, normal color. Absent: rash ED Course Vital Signs 06/07/19 06/07/19 06/07/19 08:19 09:44 09:45 Temperature 97.9 F Pulse Rate 84 70 72 Respiratory 18 14 12 Rate Blood Pressure 162/94 130/70 O2 Sat by Pulse 98 98 97 Oximetry - Reevaluation(s) Reevaluation #1: I discussed all results with patient. Patient is stable for discharge. Patient will be discharged home. Patient agrees with plan of care. Patient given discharge instructions. Patient voiced understanding discharge instructions. 06/07/19 10:52 ED Medical Decision Making - Lab Data Result diagrams: 06/07/19 08:29 06/07/19 08:29 - EKG Data -: EKG Interpreted by Me EKG shows normal: sinus rhythm, axis, intervals, QRS complexes, ST-T waves Rate: normal - Radiology Data Radiology results: report reviewed, image reviewed interpreted by me: Negative chest x-ray - Medical Decision Making Patient is a 59-year-old male that presents emergency room with complaints of anxiety, dyspnea on exertion. Patient's symptoms. We secondary to anxiety. Patient is currently controlled on his pulmonary Mozer medication. Patient stable for discharge. Patient was discharged home. Patient will need to follow up with his primary care. Patient's labs unremarkable. Patient's EKG negative. - Differential Diagnosis anx. sob. torre Critical care attestation.: If time is entered above; I have spent that time in minutes in the direct care of this critically ill patient, excluding procedure time. ED Disposition Clinical Impression: TORRE (dyspnea on exertion), SOB (shortness of breath), Anxiety Disposition: DC-01 TO HOME OR SELFCARE Is pt being admited?: No Does the pt Need Aspirin: No Condition: Stable Instructions: Anxiety (ED) Additional Instructions: Patient to follow up with primary care in 2-3 days. Patient to return to ER if condition worsens. Patient to take meds as directed. Patient increase water. Patient to rest. Patient to take Tylenol or ibuprofen when necessary for pain. Prescriptions: Bupropion HCl [Wellbutrin XL] 300 mg PO QAM 15 Days #15 tab.er.24h Referrals: OPAL WILSON MD [Primary Care Provider] - 2-3 Days Time of Disposition: 10:55
[2019-06-07 11:04] VITALS: BP 120/75
== END 2019-06-07 11:10 | disposition home or self-care (01) ==
LOC: ED 08:17
DX: F41.9 Anxiety disorder, unspecified (principal); R06.02 Shortness of breath; R06.00 Dyspnea, unspecified; I10 Essential (primary) hypertension; E11.9 Type 2 diabetes mellitus without complications; M19.90 Unspecified osteoarthritis, unspecified site; Z98.890 Other specified postprocedural states; Z86.711 Personal history of pulmonary embolism; Z79.01 Long term (current) use of anticoagulants
CPT/HCPCS: 36415; 71046; 80048; 84484; 85025; 85610; 85730; 93005; 93010

== ENCOUNTER 2019-06-21 06:14 | Outpatient (CLI) | payer BC ==
[2019-06-21 06:57] LABS: Basophils % (Auto) 0.6 % (0.0-1.8); Eosinophils # (Auto) 0.1 K/mm3 (0.0-0.4); Hematocrit 44.3 % (35.5-45.6); Hemoglobin 14.6 gm/dl (11.8-15.2); Lymphocytes # (Auto) 1.4 K/mm3 (1.2-5.4); Lymphocytes % (Auto) 24.5 % (13.4-35.0); Mean Corpuscular HGB Conc 33 % (32-34); Mean Corpuscular Volume 87 fl (84-94); Monocytes # (Auto) 0.6 K/mm3 (0.0-0.8); Monocytes % (Auto) 10.8 % (0.0-7.3); Platelet Count 196 K/mm3 (140-440); Red Blood Count 5.08 M/mm3 (3.65-5.03); Red Cell Distribution Width 14.8 % (13.2-15.2)
[2019-06-21 07:20] LABS: Alanine Aminotransferase 27 units/L (7-56); Albumin 4.2 g/dL (3.9-5); BUN/Creatinine Ratio 25; Blood Urea Nitrogen 20 mg/dL (9-20); Hemolysis Index 2; LDL Cholesterol,Direct 102 mg/dL (50-130)
[2019-06-21 08:28] LABS: Chol/HDL Ratio 4.02 %; HDL Cholesterol 35 mg/dL (40-59)
== END 2019-06-21 06:15 | disposition home or self-care (01) ==
LOC: LAB 06:14
PROVIDERS: ATTEND Internal Medicine Hematology & Oncology
DX: E11.9 Type 2 diabetes mellitus without complications (principal); E78.5 Hyperlipidemia, unspecified; I10 Essential (primary) hypertension
CPT/HCPCS: 36415; 80053; 80061; 83036; 83516; 85025; 85220; 85379

== ENCOUNTER 2019-10-11 06:03 | Outpatient (CLI) | payer BC ==
[2019-10-11 06:41] LABS: Hematocrit 43.2 % (35.5-45.6); Hemoglobin 14.5 gm/dl (11.8-15.2); Mean Corpuscular HGB Conc 34 % (32-34); Mean Corpuscular Volume 88 fl (84-94); Platelet Count 209 K/mm3 (140-440); Red Blood Count 4.93 M/mm3 (3.65-5.03); Red Cell Distribution Width 14.5 % (13.2-15.2)
[2019-10-11 07:03] LABS: Alanine Aminotransferase 33 units/L (7-56); Albumin 4.1 g/dL (3.9-5); BUN/Creatinine Ratio 23; Blood Urea Nitrogen 21 mg/dL (9-20); Calcium 8.5 mg/dL (8.4-10.2); Hemolysis Index 7
[2019-10-11 07:11] LABS: Basophils % (Manual) 0.8 % (0.0-1.8); Eosinophils % (Manual) 2.2 % (0.0-4.3); Monocytes % (Manual) 11.6 % (0.0-7.3)
== END 2019-10-11 06:04 | disposition home or self-care (01) ==
LOC: LAB 06:03
PROVIDERS: ATTEND Internal Medicine Hematology & Oncology
DX: I26.99 Other pulmonary embolism without acute cor pulmonale (principal)
CPT/HCPCS: 80053; 85027; 85379

== ENCOUNTER 2019-10-29 15:31 | Outpatient (CLI) | payer BC ==
--- NOTE | 2019-10-29 16:03 | XRay Report ---
CHEST PA AND LATERAL VIEWS INDICATION: MAIN: CHEST PAIN/LOWER BACK PAIN; LOWER LEFT LUNG PAIN AND SINUS ISSUES. COMPARISON: 06/07/2019 FINDINGS: Support devices: None Heart: Normal and unchanged. Lungs/Pleura: No acute pulmonary or pleural findings. IMPRESSION: 1. No acute disease and no interval change. Signer Name: Aric Hoff MD Signed: 10/29/2019 3:59 PM Workstation Name: [id number]
== END 2019-10-29 15:32 | disposition home or self-care (01) ==
LOC: XRAY 15:31
PROVIDERS: ATTEND Internal Medicine
DX: M54.5 Low back pain (principal); R07.9 Chest pain, unspecified; J98.4 Other disorders of lung
CPT/HCPCS: 71046

== ENCOUNTER 2019-11-04 15:15 | Outpatient (CLI) | payer BC ==
[2019-11-04 16:03] LABS: Blood Urea Nitrogen 18 mg/dL (9-20)
--- NOTE | 2019-11-04 18:24 | Cat Scan Report ---
CTA CHEST WITH IV CONTRAST INDICATION: I26.99 PULMONARY EMBOLISM CONTRAST: 100 cc Omnipaque 350 IV COMPARISON: 02/28/2019, report unavailable Three-plane MIP reconstructions were produced. All CT scans at this location are performed using CT d ose reduction for ALARA by means of automated exposure control. NOTE: Resolution is decreased and artifact is introduced by the patient's size. FINDINGS: No significant axillary or chest wall abnormalities are seen. Less portions of the upper ab domen show mild fatty infiltration of the liver and a probable tiny cyst. Small hiatal hernia is note d. Multiple small dependent gallstones are seen without obvious gallbladder wall thickening or biliar y dilatation. No mediastinal or hilar masses are seen. No pleural effusions are noted. No pneumothora x or pneumomediastinum are seen. No obvious endobronchial lesions are noted. Lung strauss are clear of infiltrates, nodules, or masses. Aorta shows no aneurysmal dilatation or evidence of dissection. Only mild atherosclerotic changes are seen. Major branches appear to opacify well. Moderate opacification of the pulmonary arterial system was achieved. I do not see evidence of pulmon pepper thromboembolism. IMPRESSION: No acute abnormalities are seen Signer Name: Stephen Lora MD Signed: 11/04/2019 6:19 PM Workstation Name: [id number]
== END 2019-11-04 15:16 | disposition home or self-care (01) ==
LOC: CT 15:15
PROVIDERS: ATTEND Internal Medicine Hematology & Oncology
DX: I70.0 Atherosclerosis of aorta (principal); K76.0 Fatty (change of) liver, not elsewhere classified; K44.9 Diaphragmatic hernia without obstruction or gangrene; K80.20 Calculus of gallbladder without cholecystitis without obstruction
CPT/HCPCS: 36415; 71275; 82565; 84520; Q9967

== ENCOUNTER 2020-01-10 05:48 | Outpatient (CLI) | payer BC ==
[2020-01-10 06:10] LABS: Basophils % (Auto) 0.7 % (0.0-1.8); Eosinophils # (Auto) 0.2 K/mm3 (0.0-0.4); Eosinophils % (Auto) 2.7 % (0.0-4.3); Hematocrit 42.9 % (35.5-45.6); Hemoglobin 14.5 gm/dl (11.8-15.2); Lymphocytes # (Auto) 1.4 K/mm3 (1.2-5.4); Lymphocytes % (Auto) 22.7 % (13.4-35.0); Mean Corpuscular HGB Conc 34 % (32-34); Mean Corpuscular Volume 87 fl (84-94); Monocytes # (Auto) 0.7 K/mm3 (0.0-0.8); Monocytes % (Auto) 11.1 % (0.0-7.3); Platelet Count 191 K/mm3 (140-440); Red Blood Count 4.93 M/mm3 (3.65-5.03); Red Cell Distribution Width 14.7 % (13.2-15.2)
[2020-01-10 06:37] LABS: Alanine Aminotransferase 28 units/L (7-56); Albumin 4.2 g/dL (3.9-5); BUN/Creatinine Ratio 22; Blood Urea Nitrogen 20 mg/dL (9-20); Calcium 9.2 mg/dL (8.4-10.2); Hemolysis Index 4; LDL Cholesterol,Direct 92 mg/dL (50-130)
[2020-01-10 06:47] LABS: Chol/HDL Ratio 3.54 %; HDL Cholesterol 37 mg/dL (40-59)
[2020-01-13 10:43] LABS: Vitamin D, 25-OH, D2 <4 ng/mL
== END 2020-01-10 05:49 | disposition home or self-care (01) ==
LOC: LAB 05:48
PROVIDERS: ATTEND Internal Medicine
DX: Z00.00 Encounter for general adult medical examination without abnormal findings (principal); Z13.29 Encounter for screening for other suspected endocrine disorder; Z13.21 Encounter for screening for nutritional disorder; E11.9 Type 2 diabetes mellitus without complications; I10 Essential (primary) hypertension; E66.01 Morbid (severe) obesity due to excess calories
CPT/HCPCS: 36415; 80053; 80061; 82306; 82607; 83036; 84443; 85025

== ENCOUNTER 2020-04-28 15:07 | Emergency (ER) | payer BC ==
--- NOTE | 2020-04-28 15:20 | Event Note ---
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 Further treatment and workup at subsequent clinical providers discretion. Patient/guardian urged not to elope from the ED as their condition may be serious if not clinically assessed and managed. Initial orders include: labs ekg
[2020-04-28 15:53] LABS: Hematocrit 44.4 % (35.5-45.6); Hemoglobin 14.9 gm/dl (11.8-15.2); Mean Corpuscular HGB Conc 34 % (32-34); Mean Corpuscular Volume 88 fl (84-94); Platelet Count 212 K/mm3 (140-440); Red Blood Count 5.07 M/mm3 (3.65-5.03); Red Cell Distribution Width 14.4 % (13.2-15.2)
[2020-04-28] MEDS ORDERED: ACETAMINOPHEN 500 MG TAB PO ONE (16:01)
[2020-04-28 16:09] LABS: BUN/Creatinine Ratio 24
[2020-04-28 16:20] LABS: Blood Urea Nitrogen 19 mg/dL (9-20)
[2020-04-28 16:21] LABS: Alanine Aminotransferase 35 units/L (7-56); Albumin 4.4 g/dL (3.9-5); Calcium 9.3 mg/dL (8.4-10.2); Hemolysis Index 17
[2020-04-28] MEDS ORDERED: cloNIDine 0.2 MG TAB PO ONE (17:12)
--- NOTE | 2020-04-28 17:30 | Emergency Department Report ---
ED General Adult HPI - General Chief complaint: High BP Stated complaint: HBP PUI?: No Time Seen by Provider: 04/28/20 15:17 Source: patient Mode of arrival: Ambulatory Limitations: No Limitations - History of Present Illness Initial comments: This is a 59-year-old male with a history of high blood pressure currently on medication who presents the ED complaining of frontal sinus headache that worsened today while he was at work. 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 Patient stated that he went to the employee health at the hospital and once he had his vitals taken he was sent here due to elevated blood pressure. Patient states that his primary care physician is Dr. Lira who recently just reduced his blood pressure dose from twice a day to once a day. Patient states he usually gets headaches related to sinus drainage. Patient denies any blurry vision, chest pain, shortness of breath, nausea vomiting or any other problems. Severity scale (0 -10): 3 - Related Data Previous Rx's Medication Instructions Recorded Last Taken Type ALPRAZolam [Xanax TAB] 0.25 mg PO DAILY PRN #15 tablet 03/02/19 Unknown Rx Acetaminophen [Acetaminophen TAB] 650 mg PO Q4H PRN tablet 03/02/19 Unknown Rx Apixaban [Eliquis] 2 tab PO Q12HR #10 tablet 03/02/19 Unknown Rx Citalopram [Celexa] 20 mg PO DAILY #30 03/02/19 02/27/19 Rx Pantoprazole [Protonix TAB] 40 mg PO HS #30 03/02/19 02/27/19 Rx dilTIAZem CD [Cardizem CD] 240 mg PO BID #60 03/02/19 02/28/19 Rx Bupropion HCl [Wellbutrin XL] 300 mg PO QAM 15 Days #15 06/07/19 Unknown Rx tab.er.24h Fluticasone [Flonase] 1 spray NS QDAY #1 bottle 04/28/20 Unknown Rx Allergies Allergy/AdvReac Type Severity Reaction Status Date / Time No Known Allergies Allergy Verified 02/28/19 22:20 ED Review of Systems ROS: Stated complaint: HBP Other details as noted in HPI Comment: All other systems reviewed and negative ED Past Medical Hx - Past Medical History Hx Hypertension: Yes Hx Congestive Heart Failure: No Hx Diabetes: Yes (2019) Hx Pulmonary Embolism: Yes Hx Arthritis: Yes Hx Psychiatric Treatment: Yes (anx) Hx Asthma: No Hx COPD: No Hx HIV: No - Surgical History Additional Surgical History: HERNIA - Social History Smoking Status: Never Smoker Substance Use Type: None - Medications Home Medications: Home Medications Medication Instructions Recorded Confirmed Last Taken Type ALPRAZolam [Xanax TAB] 0.25 mg PO DAILY PRN #15 tablet 03/02/19 Unknown Rx Acetaminophen [Acetaminophen TAB] 650 mg PO Q4H PRN tablet 03/02/19 Unknown Rx Apixaban [Eliquis] 2 tab PO Q12HR #10 tablet 03/02/19 Unknown Rx Citalopram [Celexa] 20 mg PO DAILY #30 03/02/19 02/28/19 02/27/19 Rx Pantoprazole [Protonix TAB] 40 mg PO HS #30 03/02/19 02/28/19 02/27/19 Rx dilTIAZem CD [Cardizem CD] 240 mg PO BID #60 03/02/19 02/28/19 02/28/19 Rx Bupropion HCl [Wellbutrin XL] 300 mg PO QAM 15 Days #15 06/07/19 Unknown Rx tab.er.24h Fluticasone [Flonase] 1 spray NS QDAY #1 bottle 04/28/20 Unknown Rx ED Physical Exam - General Limitations: No Limitations General appearance: alert, in no apparent distress - Head Head exam: Present: atraumatic, normocephalic - Eye Eye exam: Present: normal appearance, PERRL Pupils: Present: normal accommodation - ENT ENT exam: Present: mucous membranes moist, other (Mild frontal and maxillary sinus tenderness) - Neck Neck exam: Present: normal inspection, full ROM. Absent: tenderness - Respiratory Respiratory exam: Present: normal lung sounds bilaterally. Absent: respiratory distress, chest wall tenderness, accessory muscle use - Cardiovascular Cardiovascular Exam: Present: regular rate, normal rhythm. Absent: systolic murmur, diastolic murmur, rubs, gallop - GI/Abdominal GI/Abdominal exam: Present: soft, normal bowel sounds - Rectal Rectal exam: Present: deferred - Extremities Exam Extremities exam: Present: normal inspection - Back Exam Back exam: Present: normal inspection - Neurological Exam Neurological exam: Present: alert, oriented X3, CN II-XII intact, normal gait. Absent: motor sensory deficit - Psychiatric Psychiatric exam: Present: normal affect, normal mood - Skin Skin exam: Present: warm, dry, intact, normal color. Absent: rash ED Course Vital Signs 04/28/20 04/28/20 04/28/20 15:17 17:27 17:30 Temperature 97.9 F 97.8 F Pulse Rate 89 81 81 Respiratory 18 18 Rate Blood Pressure 155/93 155/93 Blood Pressure 189/108 155/93 [Right] O2 Sat by Pulse 96 98 Oximetry ED Medical Decision Making - Lab Data Result diagrams: 04/28/20 15:31 04/28/20 15:31 Laboratory Last Values WBC 10.7 K/mm3 (4.5-11.0) 04/28/20 15:31 RBC 5.07 M/mm3 (3.65-5.03) H 04/28/20 15:31 Hgb 14.9 gm/dl (11.8-15.2) 04/28/20 15:31 Hct 44.4 % (35.5-45.6) 04/28/20 15:31 MCV 88 fl (84-94) 04/28/20 15:31 MCH 29 pg (28-32) 04/28/20 15:31 MCHC 34 % (32-34) 04/28/20 15:31 RDW 14.4 % (13.2-15.2) 04/28/20 15:31 Plt Count 212 K/mm3 (140-440) 04/28/20 15:31 Sodium 141 mmol/L (137-145) 04/28/20 15:31 Potassium 4.0 mmol/L (3.6-5.0) 04/28/20 15:31 Chloride 100.3 mmol/L (98-107) 04/28/20 15:31 Carbon Dioxide 26 mmol/L (22-30) 04/28/20 15:31 Anion Gap 19 mmol/L 04/28/20 15:31 BUN 19 mg/dL (9-20) 04/28/20 15:31 Creatinine 0.8 mg/dL (0.8-1.3) 04/28/20 15:31 Estimated GFR > 60 ml/min 04/28/20 15:31 BUN/Creatinine Ratio 24 % 04/28/20 15:31 Glucose 124 mg/dL (75-100) H 04/28/20 15:31 Calcium 9.3 mg/dL (8.4-10.2) 04/28/20 15:31 Total Bilirubin 0.60 mg/dL (0.1-1.2) 04/28/20 15:31 AST 31 units/L (5-40) 04/28/20 15:31 ALT 35 units/L (7-56) 04/28/20 15:31 Alkaline Phosphatase 105 units/L (35-129) 04/28/20 15:31 Troponin T < 0.010 ng/mL (0.00-0.029) 04/28/20 15:31 Total Protein 7.9 g/dL (6.3-8.2) 04/28/20 15:31 Albumin 4.4 g/dL (3.9-5) 04/28/20 15:31 Albumin/Globulin Ratio 1.3 % 04/28/20 15:31 - Medical Decision Making This 59-year-old male with a past medical history of hypertension presents with headache and elevated blood pressure while at work. Labs are all within normal limits, patient states that after receiving the Tylenol headache is resolved to a 3 out of 10. Patient does note that he gets headaches occasionally usually sinus related. Patient does note that his doctor did reduce his blood pressure medication from twice daily to once a day. He states his primary care doctor is Dr. blankenship here. Patient did not have any head injuries nor did he have any chest pain or any other complaints while in the ED. Blood pressure did reduce, signs are within normal limits Discussed with patient to follow-up with Dr. blankenship here for medication management Critical care attestation.: If time is entered above; I have spent that time in minutes in the direct care of this critically ill patient, excluding procedure time. ED Disposition Clinical Impression: Headache, Elevated blood pressure reading, Hx of primary hypertension Disposition: -01 TO HOME OR SELFCARE Is pt being admited?: No Does the pt Need Aspirin: No Condition: Stable Instructions: Acute Headache (ED) Additional Instructions: Make sure to follow up with the primary care physician as discussed. Take Tylenol as needed for pain. You may take Flonase for sinus pressure and drainage If you have any worsening symptoms or develop new symptoms please return to ED immediately. Prescriptions: Fluticasone [Flonase] 1 spray NS QDAY #1 bottle Referrals: PRIMARY CARE, [Primary Care Provider] - 3-5 Days ABDOUL WLOFE MD [Staff Physician] - 3-5 Days Forms: Work/School Release Form(ED) Time of Disposition: 17:59
[2020-04-28 17:54] VITALS: BP 155/93
== END 2020-04-28 18:11 | disposition home or self-care (01) ==
LOC: ED 15:07
DX: I10 Essential (primary) hypertension (principal); E11.9 Type 2 diabetes mellitus without complications; M13.88 Other specified arthritis, other site; Z79.899 Other long term (current) drug therapy; Z86.711 Personal history of pulmonary embolism; Z79.01 Long term (current) use of anticoagulants
CPT/HCPCS: 36415; 80053; 84484; 85027; 93005; 99283

== ENCOUNTER 2020-10-08 05:47 | Outpatient (CLI) | payer BC ==
[2020-10-08 06:22] LABS: Hemoglobin 14.8 gm/dl (11.8-15.2); Mean Corpuscular HGB Conc 34 % (32-34); Mean Corpuscular Volume 88 fl (84-94); Platelet Count 232 K/mm3 (140-440); Red Blood Count 5.01 M/mm3 (3.65-5.03); Red Cell Distribution Width 14.1 % (13.2-15.2)
[2020-10-08 06:50] LABS: Alanine Aminotransferase 38 units/L (7-56); Albumin 4.4 g/dL (3.9-5); BUN/Creatinine Ratio 28; Blood Urea Nitrogen 22 mg/dL (9-20); Calcium 8.8 mg/dL (8.4-10.2); Hemolysis Index 10
== END 2020-10-08 05:48 | disposition home or self-care (01) ==
LOC: LAB 05:47
PROVIDERS: ATTEND Internal Medicine Hematology & Oncology
DX: D68.69 Other thrombophilia (principal)
CPT/HCPCS: 36415; 80053; 85027

== ENCOUNTER 2020-10-15 15:05 | Outpatient (CLI) | payer BC ==
--- NOTE | 2020-10-15 16:09 | Vascular Lab Report ---
DUPLEX DOPPLER LOWER EXTREMITY VEINS, LEFT INDICATION / CLINICAL INFORMATION: Left leg pain. TECHNIQUE: Duplex doppler imaging was performed through the veins of the left lower extremity using venous compr ession and other maneuvers. COMPARISON: None available. FINDINGS: LEFT COMMON FEMORAL VEIN: Negative. LEFT FEMORAL VEIN: Negative. LEFT POPLITEAL VEIN: Negative. LEFT CALF VEINS: Negative. ADDITIONAL FINDINGS: None. IMPRESSION: 1. No sonographic evidence for DVT in the left lower extremity. Signer Name: Mejia Hermosillo MD Signed: 10/15/2020 4:04 PM Workstation Name: [id number]
== END 2020-10-15 15:06 | disposition home or self-care (01) ==
LOC: VAS 15:05
PROVIDERS: ATTEND Internal Medicine Hematology & Oncology
DX: M79.606 Pain in leg, unspecified (principal); D68.69 Other thrombophilia

== ENCOUNTER 2020-12-28 15:40 | Emergency (ER) | payer BC ==
[2020-12-28] MEDS ORDERED: ACETAMINOPHEN 325 MG TAB PO ONE (16:04)
[2020-12-28] MEDS ORDERED: LIDOCAINE (4%) 40 MG/ML TOPICAL SOLN 50 ML BOTTLE TP ONE (16:04)
[2020-12-28] MEDS ORDERED: diphenhydrAMINE 50 MG/ML VIAL IV ONE (16:04)
[2020-12-28] MEDS ORDERED: METOCLOPRAMIDE 10 MG/2 ML INJ IV ONE (16:04)
--- NOTE | 2020-12-28 16:06 | Emergency Department Report ---
ED General Adult HPI - General Chief complaint: Headache Stated complaint: HEAD PAIN PUI?: No Time Seen by Provider: 12/28/20 15:45 Source: patient, RN notes reviewed, old records reviewed Mode of arrival: Ambulatory Limitations: No Limitations - History of Present Illness Initial comments: The patient was evaluated in the emergency department for symptoms described in the history of present illness. He/she was evaluated in the context of the global COVID-19 pandemic, which necessitated consideration that the patient might be at risk for infection with the virus that causes COVID-19. Institutional protocols and algorithms that pertain to the evaluation of patients at risk for COVID-19 are in a state of rapid change based on information released by regulatory bodies including the CDC and federal and state organizations. These policies and algorithms were followed during the patient's care in the emergency department. Please note that these policies, procedures and recommendations changed on a rapid basis. Primary CARE doctor: Dr Mony Kramer Hematology: Dr Frnacois Past medical history: Asthma, GERD, obstructive sleep apnea, on CPAP, hypertension, pulmonary embolism, on systemic anticoagulation, body mass index of 43 This is a pleasant and cooperative 61-year-old gentleman. He is not known to myself previously. 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 He presents to the ER today with a complaint of headache and nausea. The headache is midline, and bitemporal. The headache is not sudden or thunderclap in nature. The headache is not maximal in intensity. The headache is not the worst headache of his life, he reports a worse headache last year. There is no recent trauma, motor vehicle accident, or chiropractic manipulation. He denies loss of vision, chest pain, abdominal pain, new/different shortness of breath, he denies loss of taste and smell, he reports he has received his Covid vaccinations, he reports that he also has a history of anxiety and panic attack, and he reports that while his headache was developing this morning, he was in a closed room, felt very enclo sed, and began to panic. His headache is mostly resolved. He takes Eliquis currently. He reports compliance with his medications. He also endorses that he is using his CPAP at night. -: Gradual, hour(s) Location: head Radiation: non-radiation Severity scale (0 -10): 4 Quality: aching Consistency: intermittent Improves with: medication, rest Worsens with: none - Related Data Previous Rx's Medication Instructions Recorded Last Taken Type ALPRAZolam [Xanax TAB] 0.25 mg PO DAILY PRN #15 tablet 03/02/19 Unknown Rx Acetaminophen [Acetaminophen TAB] 650 mg PO Q4H PRN tablet 03/02/19 Unknown Rx Apixaban [Eliquis] 2 tab PO Q12HR #10 tablet 03/02/19 Unknown Rx Citalopram [Celexa] 20 mg PO DAILY #30 03/02/19 02/27/19 Rx Pantoprazole [Protonix TAB] 40 mg PO HS #30 03/02/19 02/27/19 Rx dilTIAZem CD [Cardizem CD] 240 mg PO BID #60 03/02/19 02/28/19 Rx Bupropion HCl [Wellbutrin XL] 300 mg PO QAM 15 Days #15 06/07/19 Unknown Rx tab.er.24h Fluticasone [Flonase] 1 spray NS QDAY #1 bottle 04/28/20 Unknown Rx Acetaminophen [Non-Aspirin Extra 500 mg PO Q6HR PRN #30 tablet 12/28/20 Unknown Rx Strength] Metoclopramide [Reglan] 10 mg PO QID PRN #30 tablet 12/28/20 Unknown Rx Allergies Allergy/AdvReac Type Severity Reaction Status Date / Time No Known Allergies Allergy Verified 02/28/19 22:20 ED Review of Systems ROS: Stated complaint: HEAD PAIN Other details as noted in HPI Constitutional: see HPI (Patient believes that he was sweating), other (Denies loss of taste and smell). denies: fever, malaise, weakness Eyes: denies: eye discharge, vision change Respiratory: shortness of breath (Chronic shortness of breath, but nothing new, worsened or different) Cardiovascular: denies: chest pain, syncope Gastrointestinal: nausea. denies: vomiting, hematemesis, melena, hematochezia Genitourinary: denies: dysuria Musculoskeletal: denies: back pain Neurological: headache. denies: numbness, paresthesias, confusion, abnormal gait Psychiatric: anxiety Hematological/Lymphatic: denies: easy bleeding ED Past Medical Hx - Past Medical History Hx Hypertension: Yes Hx Congestive Heart Failure: No Hx Diabetes: Yes (2019) Hx Pulmonary Embolism: Yes Hx Arthritis: Yes Hx Psychiatric Treatment: Yes (anxiety, depression) Hx Asthma: No Hx COPD: No Hx HIV: No Additional medical history: PE - Surgical History Additional Surgical History: HERNIA - Social History Smoking Status: Never Smoker Substance Use Type: None - Medications Home Medications: Home Medications Medication Instructions Recorded Confirmed Last Taken Type ALPRAZolam [Xanax TAB] 0.25 mg PO DAILY PRN #15 tablet 03/02/19 Unknown Rx Acetaminophen [Acetaminophen TAB] 650 mg PO Q4H PRN tablet 03/02/19 Unknown Rx Apixaban [Eliquis] 2 tab PO Q12HR #10 tablet 03/02/19 Unknown Rx Citalopram [Celexa] 20 mg PO DAILY #30 03/02/19 02/28/19 02/27/19 Rx Pantoprazole [Protonix TAB] 40 mg PO HS #30 03/02/19 02/28/19 02/27/19 Rx dilTIAZem CD [Cardizem CD] 240 mg PO BID #60 03/02/19 02/28/19 02/28/19 Rx Bupropion HCl [Wellbutrin XL] 300 mg PO QAM 15 Days #15 06/07/19 Unknown Rx tab.er.24h Fluticasone [Flonase] 1 spray NS QDAY #1 bottle 04/28/20 Unknown Rx Acetaminophen [Non-Aspirin Extra 500 mg PO Q6HR PRN #30 tablet 12/28/20 Unknown Rx Strength] Metoclopramide [Reglan] 10 mg PO QID PRN #30 tablet 12/28/20 Unknown Rx ED Physical Exam - General Limitations: No Limitations General appearance: alert, anxious, obese - Head Head exam: Present: atraumatic, normocephalic - Eye Eye exam: Present: normal appearance, PERRL, EOMI, other (Visual acuity intact to finger counting, color perception, reading at a close distance). Absent: nystagmus - ENT ENT exam: Present: normal exam, normal orophraynx, mucous membranes moist - Neck Neck exam: Present: normal inspection, full ROM. Absent: tenderness, m eningismus - Respiratory Respiratory exam: Present: normal lung sounds bilaterally. Absent: respiratory distress, wheezes, rales, rhonchi, stridor, decreased breath sounds - Cardiovascular Cardiovascular Exam: Present: regular rate, normal rhythm, normal heart sounds. Absent: bradycardia, tachycardia, irregular rhythm, systolic murmur, diastolic murmur, rubs, gallop - GI/Abdominal GI/Abdominal exam: Present: soft. Absent: distended, tenderness, guarding, rebound, rigid, pulsatile mass - Rectal Rectal exam: Present: deferred - Extremities Exam Extremities exam: Present: normal inspection, full ROM, pedal edema (1+ edema bilateral lower extremities), other (2+ pulses noted in the bilateral upper and lower extremities. There is no palpable cord. negative Homans sign. Muscular compartments are soft. The pelvis is stable.). Absent: calf tenderness - Back Exam Back exam: Present: normal inspection, full ROM. Absent: tenderness, CVA tenderness (R), CVA tenderness (L), paraspinal tenderness, vertebral tenderness - Neurological Exam Neurological exam: Present: alert (There is no past-pointing. There is no pr onator drift.), oriented X3, normal gait, other (No facial droop. Tongue midline. Extraocular movements intact bilaterally. Facial sensation intact to light touch in V1, V2, V3 distribution bilaterally. 5 and a 5 strength in 4 extremities. Sensation intact to light touch in 4 extremities.). Absent: motor sensory deficit - Psychiatric Psychiatric exam: Present: normal affect, normal mood - Skin Skin exam: Present: warm, dry, intact, normal color. 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 Laboratory studies fairly u nremarkable. Noncontrast CT scan of the brain was obtained given that patient is taking systemic anticoagulation. Patient will be treated supportively and symptomatically. Reassess after laboratory studies and noncontrast CT scan of the brain have resulted. Patient currently walking around the department, does not appear to be in significant distress 12/28/20 17:34 Patient feels improved. Laboratory studies unremarkable. Noncontrast CT scan of the brain negative for acute findings. Patient requesting to be discharged. Repeat neurologic examination unchanged. Patient counseled on findings, instructions to follow-up as an outpatient. ED Medical Decision Making - Lab Data Result diagrams: 12/28/20 16:08 12/28/20 16:08 Vital Signs 12/28/20 12/28/20 15:55 16:30 Pulse Rate 82 Respiratory 20 17 Rate Blood Pressure 134/76 [Right] O2 Sat by Pulse 98 Oximetry Lab Results 12/28/20 12/28/20 12/28/20 Range/Units 16:08 16:08 16:08 WBC 7.2 (4.5-11.0) K/mm3 RBC 4.77 (3.65-5.03) M/mm3 Hgb 14.2 (11.8-15.2) gm/dl Hct 42.4 (35.5-45.6) % MCV 89 (84-94) fl MCH 30 (28-32) pg MCHC 34 (32-34) % RDW 14.6 (13.2-15.2) % Plt Count 194 (140-440) K/mm3 PT 13.6 (12.2-14.9) Sec. INR 1.06 (0.87-1.13) Sodium 139 (137-145) mmol/L Potassium 3.7 (3.6-5.0) mmol/L Chloride 103.0 (98-107) mmol/L Carbon Dioxide 28 (22-30) mmol/L Anion Gap 12 mmol/L BUN 20 (9-20) mg/dL Glucose 118 H (75-100) mg/dL Calcium 9.1 (8.4-10.2) mg/dL Magnesium 1.90 (1.7-2.3) mg/dL Total Bilirubin 0.40 (0.1-1.2) mg/dL AST 24 (5-40) units/L ALT 31 (7-56) units/L Alkaline Phosphatase 82 (35-129) units/L Total Creatine Kinase 290 H (55-170) units/L Troponin T < 0.010 (0.00-0.029) ng/mL Total Protein 6.8 (6.3-8.2) g/dL Albumin 4.3 (3.9-5) g/dL Albumin/Globulin Ratio 1.7 % Vital Signs 12/28/20 12/28/20 12/28/20 15:55 16:30 17:02 Temperature 98 F Pulse Rate 82 Respiratory 20 17 Rate Blood Pressure 134/76 [Right] O2 Sat by Pulse 98 Oximetry - EKG Data -: EKG Interpreted by Ia EKG shows normal: sinus rhythm Rate: normal - EKG Data 12/28/20 16:58 The EKG today's interpreted at 16: 00 Sinus rhythm, 80 bpm. Normal axis, left ventricular hypertrophy, QTC prolonged, 450 ms. This is an abnormal EKG. This is not a STEMI. It is unchanged from prior EKG from April 2020 - Radiology Data Radiology results: pending, report reviewed, image reviewed Noncontrast CT scan of the brain negative for acute findings. CT head/brain wo con INDICATION: Headache, patient on anticoagulation. TECHNIQUE: Routine CT head without contrast. All CT scans at this location are performed using CT dose reduction for ALARA by means of automated exposure control. COMPARISON: None. FINDINGS: BRAIN / INTRACRANIAL CONTENTS: No acute hemorrhage, mass effect, midline shift, or hydrocephalus. No appreciable acute large territorial or lacunar infarct. No chronic infarct or focal atrophy. Normal brain volume and ventricular/sulcal size for age. ORBITS: No significant abnormality of visualized orbits. SINUSES / MASTOIDS: No significant abnormality of visualized sinuses and mastoid air cells. ADDITIONAL FINDINGS: None. IMPRESSION: 1. No acute intracranial abnormality. Signer Name: Mejia Hermosillo MD Signed: 12/28/2020 4:09 PM Workstation Name: [employer] Critical care attestation.: If time is entered above; I have spent that time in minutes in the direct care of this critically ill patient, excluding procedure time. ED Disposition Clinical Impression: Anticoagulated Headache Qualifiers: Headache type: unspecified Headache chronicity pattern: episodic headache Intractability: not intractable Qualified Code(s): R51.9 - Headache, unspecified Disposition: DC-01 TO HOME OR SELFCARE Is pt being admited?: No Does the pt Need Aspirin: No Condition: Good Instructions: General Headache Without Cause, [id number] Additional Instructions: Please continue current outpatient medications. Patient may take the prescribed medications as needed and directed for headache. Please follow-up with your out patient primary care doctor within the next week. Please make certain to use CPAP at night. Please return to the emergency room right away with new pain, worsened pain, migration of pain, projectile vomiting, change in mental status, confusion, inability to tolerate liquid feeds, weakness, numbness, confusion, or any new, worsened or different symptoms not present on the initial emergency room e valuation. Please have your primary care doctor contact medical records department to obtain copies of laboratory studies and imaging studies, and to follow-up on nonemergent incidental abnormalities. Prescriptions: Acetaminophen [Non-Aspirin Extra Strength] 500 mg PO Q6HR PRN #30 tablet PRN Reason: Pain , Severe (7-10) Metoclopramide [Reglan] 10 mg PO QID PRN #30 tablet PRN Reason: Headache Referrals: ABDOUL KRAMER MD [Staff Physician] - 3-5 Days Forms: Work/School Release Form(ED)
[2020-12-28 16:38] LABS: Hematocrit 42.4 % (35.5-45.6); Hemoglobin 14.2 gm/dl (11.8-15.2); Mean Corpuscular HGB Conc 34 % (32-34); Mean Corpuscular Volume 89 fl (84-94); Platelet Count 194 K/mm3 (140-440); Red Blood Count 4.77 M/mm3 (3.65-5.03); Red Cell Distribution Width 14.6 % (13.2-15.2)
[2020-12-28 16:49] LABS: INR 1.06 (0.87-1.13)
[2020-12-28 16:57] LABS: Alanine Aminotransferase 31 units/L (7-56); Albumin 4.3 g/dL (3.9-5); Blood Urea Nitrogen 20 mg/dL (9-20); Calcium 9.1 mg/dL (8.4-10.2); Hemolysis Index 12
[2020-12-28 16:59] LABS: BUN/Creatinine Ratio 29
--- NOTE | 2020-12-28 17:14 | Cat Scan Report ---
CT head/brain wo con INDICATION: Headache, patient on anticoagulation. TECHNIQUE: Routine CT head without contrast. All CT scans at this location are performed using CT dos e reduction for ALARA by means of automated exposure control. COMPARISON: None. FINDINGS: BRAIN / INTRACRANIAL CONTENTS: No acute hemorrhage, mass effect, midline shift, or hydrocephalus. No appreciable acute large territorial or lacunar infarct. No chronic infarct or focal atrophy. Normal b rain volume and ventricular/sulcal size for age. ORBITS: No significant abnormality of visualized orbits. SINUSES / MASTOIDS: No significant abnormality of visualized sinuses and mastoid air cells. ADDITIONAL FINDINGS: None. IMPRESSION: 1. No acute intracranial abnormality. Signer Name: Mejia Hermosillo MD Signed: 12/28/2020 5:09 PM Workstation Name: [id number]
[2020-12-28 18:18] VITALS: BP 130/77
--- NOTE | 2020-12-29 10:36 | Electrocardiograph Report ---
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
== END 2020-12-28 18:19 | disposition home or self-care (01) ==
LOC: ED 15:40
DX: R51.9 Headache, unspecified (principal); I10 Essential (primary) hypertension; E11.9 Type 2 diabetes mellitus without complications; M19.90 Unspecified osteoarthritis, unspecified site; F41.9 Anxiety disorder, unspecified; F32.9 Major depressive disorder, single episode, unspecified; Z79.899 Other long term (current) drug therapy; Z98.890 Other specified postprocedural states; Z79.01 Long term (current) use of anticoagulants
CPT/HCPCS: 36415; 70450; 80053; 82550; 82962; 83735; 84484; 85027; 85610; 93005; 96374; 96375; 99284; J1200; J2765

== ENCOUNTER 2021-02-26 06:00 | Outpatient (CLI) | payer BC ==
[2021-02-26 06:40] LABS: Bilirubin,Urine NEG (Negative); Blood,Urine NEG (Negative); Color,Urine Yellow (Yellow); Protein,Urine <15 mg/dL mg/dL (Negative); Urobilinogen,Urine < 2.0 mg/dL (<2.0); WBC,Urine < 1.0 /HPF (0.0-6.0)
[2021-02-26 06:41] LABS: Basophils % (Auto) 0.6 % (0.0-1.8); Eosinophils # (Auto) 0.2 K/mm3 (0.0-0.4); Eosinophils % (Auto) 2.4 % (0.0-4.3); Hematocrit 42.8 % (35.5-45.6); Hemoglobin 15.1 gm/dl (11.8-15.2); Lymphocytes # (Auto) 1.6 K/mm3 (1.2-5.4); Lymphocytes % (Auto) 24.2 % (13.4-35.0); Mean Corpuscular HGB Conc 35 % (32-34); Mean Corpuscular Volume 88 fl (84-94); Monocytes # (Auto) 0.8 K/mm3 (0.0-0.8); Monocytes % (Auto) 12.7 % (0.0-7.3); Platelet Count 208 K/mm3 (140-440); Red Blood Count 4.85 M/mm3 (3.65-5.03); Red Cell Distribution Width 14.6 % (13.2-15.2)
[2021-02-26 06:54] LABS: Creatinine,Urine 100.6 mg/dL (0.1-20.0)
[2021-02-26 06:58] LABS: Alanine Aminotransferase 39 units/L (7-56); Albumin 4.4 g/dL (3.9-5); BUN/Creatinine Ratio 34; Blood Urea Nitrogen 27 mg/dL (9-20); Calcium 8.4 mg/dL (8.4-10.2); Chol/HDL Ratio 3.77 %; HDL Cholesterol 40 mg/dL (40-59); Hemolysis Index 2; LDL Cholesterol,Direct 103 mg/dL (50-130)
[2021-02-26 07:18] LABS: Microalbumin/Creatinine Ratio 21.8 ug/mg
[2021-03-01 20:15] LABS: Vitamin D, 25-OH, D2 <4 ng/mL
== END 2021-02-26 06:01 | disposition home or self-care (01) ==
LOC: LAB 06:00
PROVIDERS: ATTEND Internal Medicine
DX: Z13.29 Encounter for screening for other suspected endocrine disorder (principal); Z00.00 Encounter for general adult medical examination without abnormal findings; E11.9 Type 2 diabetes mellitus without complications; I10 Essential (primary) hypertension; E78.5 Hyperlipidemia, unspecified
CPT/HCPCS: 36415; 80053; 80061; 81001; 82043; 82306; 83036; 84443; 85025

== ENCOUNTER 2021-05-06 05:57 | Outpatient (CLI) | payer BC ==
[2021-05-06 06:23] LABS: Hematocrit 43.7 % (35.5-45.6); Hemoglobin 14.6 gm/dl (11.8-15.2); Mean Corpuscular HGB Conc 33 % (32-34); Mean Corpuscular Volume 88 fl (84-94); Platelet Count 238 K/mm3 (140-440); Red Blood Count 4.98 M/mm3 (3.65-5.03); Red Cell Distribution Width 14.7 % (13.2-15.2)
[2021-05-06 06:40] LABS: Alanine Aminotransferase 53 units/L (7-56); BUN/Creatinine Ratio 19; Blood Urea Nitrogen 15 mg/dL (9-20); Hemolysis Index 4
== END 2021-05-06 05:58 | disposition home or self-care (01) ==
LOC: LAB 05:57
PROVIDERS: ATTEND Internal Medicine Hematology & Oncology
DX: D68.69 Other thrombophilia (principal)
CPT/HCPCS: 36415; 80053; 85027

== ENCOUNTER 2021-05-21 11:43 | Emergency (ER) | payer BC, OTHER ==
[2021-05-21 12:00] VITALS: BP 130/77
[2021-05-21] MEDS ORDERED: LIDOCAINE-MPF (1%) 10 MG/1 ML VIAL 5 ML INFILTRATI ONE (12:23)
--- NOTE | 2021-05-21 12:27 | Emergency Department Report ---
ED Laceration HPI - HPI Stated Complaint: LT THUMB LAC Time Seen by Provider: 05/21/21 12:23 Occurred When: Today Location: Upper Extremity Tetanus Status: Up to Date Laceration Symptoms: Yes Pain, No Foreign Body Sensation, No Numbness, No Weakness Other History: 60-year-old male presents to the emergency room for laceration to his left thumb while here at work. Patient states he was using a drill bit when his hand slipped and his thumb got caught. Patient states he is up-to-date on his tetanus as he had it for years ago when he started here at [facility]. ED Review of Systems ROS: Stated complaint: LT THUMB LAC Other details as noted in HPI Comment: All other systems reviewed and negative ED Past Medical Hx - Past Medical History Hx Hypertension: Yes Hx Congestive Heart Failure: No Hx Diabetes: Yes (2019) Hx Pulmonary Embolism: Yes Hx Arthritis: Yes Hx Psychiatric Treatment: Yes (anxiety, depression) Hx Asthma: No Hx COPD: No Hx HIV: No Additional medical history: PE - Surgical History Additional Surgical History: HERNIA - Social History Smoking Status: Never Smoker Substance Use Type: None - Medications Home Medications: Home Medications Medication Instructions Recorded Confirmed Last Taken Type ALPRAZolam [Xanax TAB] 0.25 mg PO DAILY PRN #15 tablet 03/02/19 Unknown Rx Acetaminophen [Acetaminophen TAB] 650 mg PO Q4H PRN tablet 03/02/19 Unknown Rx Apixaban [Eliquis] 2 tab PO Q12HR #10 tablet 03/02/19 Unknown Rx Citalopram [Celexa] 20 mg PO DAILY #30 03/02/19 02/28/19 02/27/19 Rx Pantoprazole [Protonix TAB] 40 mg PO HS #30 03/02/19 02/28/19 02/27/19 Rx dilTIAZem CD [Cardizem CD] 240 mg PO BID #60 03/02/19 02/28/19 02/28/19 Rx Bupropion HCl [Wellbutrin XL] 300 mg PO QAM 15 Days #15 06/07/19 Unknown Rx tab.er.24h Fluticasone [Flonase] 1 spray NS QDAY #1 bottle 04/28/20 Unknown Rx Acetaminophen [Non-Aspirin Extra 500 mg PO Q6HR PRN #30 tablet 12/28/20 Unknown Rx Strength] Metoclopramide [Reglan] 10 mg PO QID PRN #30 tablet 12/28/20 Unknown Rx Laceration Physical Exam - Exam General: Vital signs noted. No distress. Alert and acting appropriately. ED Course Vital Signs 05/21/21 11:58 Temperature 97.9 F Pulse Rate 71 Respiratory 16 Rate Blood Pressure 130/77 [Right] O2 Sat by Pulse 99 Oximetry - Laceration /Wound Repair Left Finger Wound Length (cm): 2 Wound's Depth, Shape: into muscle, linear Wound Explored: no foreign body removed Irrigated w/ Saline (ccs): 250 Betadine Prep?: Yes Volume Anesthetic (ccs): 4 Wound Debrided: minimal Wound Repaired With: sutures Suture Size/Type: 4:0 Number of Sutures: 6 Layer Closure?: No Sterile Dressing Applied?: Yes Progress: Tolerated well ED Medical Decision Making - Medical Decision Making 60-year-old male presents to the emergency room for laceration to his left thumb while here at work. Patient states he was using a drill bit when his hand slipped and his thumb got caught. Patient states he is up-to-date on his tetanus as he had it for years ago when he started here at [facility]. Laceration tray with sutures have been ordered, lidocaine has been ordered. Patient has been placed in a pad of water and Betadine to clean suture. Critical care attestation.: If time is entered above; I have spent that time in minutes in the direct care of this critically ill patient, excluding procedure time. ED Disposition Clinical Impression: Laceration of thumb Disposition: 01 HOME / SELF CARE / HOMELESS Is pt being admited?: No Does the pt Need Aspirin: No Condition: Stable Instructions: Sutures, [place], or Adhesive Wound Closure, [id number] Additional Instructions: Keep wound clean and dry. You can place [id number] triple antibiotic to your wound. Return back to the emergency room in 10 to 14 days to have sutures removed. Return sooner if there is any signs of infection such as increased swelling redness purulent discharge. Referrals: PRIMARY CARE, [Primary Care Provider] - 3-5 Days Forms: Work/School Release Form(ED) Time of Disposition: 13:35
== END 2021-05-21 14:14 | disposition home or self-care (01) ==
LOC: ED 11:43
DX: S61.012A Laceration without foreign body of left thumb without damage to nail, initial encounter (principal); I10 Essential (primary) hypertension; E11.8 Type 2 diabetes mellitus with unspecified complications; M19.90 Unspecified osteoarthritis, unspecified site; I26.99 Other pulmonary embolism without acute cor pulmonale; F41.8 Other specified anxiety disorders; F32.9 Major depressive disorder, single episode, unspecified; Z98.890 Other specified postprocedural states; W01.119A Fall on same level from slipping, tripping and stumbling with subsequent striking against unspecified sharp object, initial encounter; Y93.89 Activity, other specified; Y92.89 Other specified places as the place of occurrence of the external cause; Y99.0 Civilian activity done for income or pay
CPT/HCPCS: 99282

== ENCOUNTER 2021-06-02 12:39 | Emergency (ER) | payer BC, OTHER ==
--- NOTE | 2021-06-02 13:16 | Emergency Department Report ---
- General Stated Complaint: SOB SUTURE REMOVAL Time Seen by Provider: 06/02/21 12:59 Source: patient, old records reviewed - History of Present Illness Initial Comments: 60-year-old man presents to the emergency room for suture removal of his left thumb that was placed about a week and a half ago as well as shortness of breath that he reported this morning. He felt like he was going to need to come and be seen earlier as his shortness of breath was worse. 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 He states his has upper respiratory infection. He reports that they are both Covid vaccinated. He denies any fever chills no other symptoms. MD Complaint: other (sob) Onset/Timin -: days(s) Consistency: intermittent Improves With: nothing Worsens With: activity Associated Symptoms: denies: fever, chills, chest pain Treatments Prior to Arrival: none - Related Data Previous Rx's Medication Instructions Recorded Last Taken Type ALPRAZolam [Xanax TAB] 0.25 mg PO DAILY PRN #15 tablet 03/02/19 Unknown Rx Acetaminophen [Acetaminophen TAB] 650 mg PO Q4H PRN tablet 03/02/19 Unknown Rx Apixaban [Eliquis] 2 tab PO Q12HR #10 tablet 03/02/19 Unknown Rx Citalopram [Celexa] 20 mg PO DAILY #30 03/02/19 02/27/19 Rx Pantoprazole [Protonix TAB] 40 mg PO HS #30 03/02/19 02/27/19 Rx dilTIAZem CD [Cardizem CD] 240 mg PO BID #60 03/02/19 02/28/19 Rx Bupropion HCl [Wellbutrin XL] 300 mg PO QAM 15 Days #15 06/07/19 Unknown Rx tab.er.24h Fluticasone [Flonase] 1 spray NS QDAY #1 bottle 04/28/20 Unknown Rx Acetaminophen [Non-Aspirin Extra 500 mg PO Q6HR PRN #30 tablet 12/28/20 Unknown Rx Strength] Metoclopramide [Reglan] 10 mg PO QID PRN #30 tablet 12/28/20 Unknown Rx Allergies Allergy/AdvReac Type Severity Reaction Status Date / Time No Known Allergies Allergy Verified 02/28/19 22:20 ED Review of Systems ROS: Stated complaint: SOB SUTURE REMOVAL Other details as noted in HPI Comment: All other systems reviewed and negative ED Past Medical Hx - Past Medical History Hx Hypertension: Yes Hx Congestive Heart Failure: No Hx Diabetes: Yes (2019) Hx Pulmonary Embolism: Yes Hx Arthritis: Yes Hx Psychiatric Treatment: Yes (anxiety, depression) Hx Asthma: No Hx COPD: No Hx HIV: No Additional medical history: PE - Surgical History Additional Surgical History: HERNIA - Social History Smoking Status: Never Smoker Substance Use Type: None - Medications Home Medications: Home Medications Medication Instructions Recorded Confirmed Last Taken Type ALPRAZolam [Xanax TAB] 0.25 mg PO DAILY PRN #15 tablet 03/02/19 Unknown Rx Acetaminophen [Acetaminophen TAB] 650 mg PO Q4H PRN tablet 03/02/19 Unknown Rx Apixaban [Eliquis] 2 tab PO Q12HR #10 tablet 03/02/19 Unknown Rx Citalopram [Celexa] 20 mg PO DAILY #30 03/02/19 02/28/19 02/27/19 Rx Pantoprazole [Protonix TAB] 40 mg PO HS #30 03/02/19 02/28/19 02/27/19 Rx dilTIAZem CD [Cardizem CD] 240 mg PO BID #60 03/02/19 02/28/19 02/28/19 Rx Bupropion HCl [Wellbutrin XL] 300 mg PO QAM 15 Days #15 06/07/19 Unknown Rx tab.er.24h Fluticasone [Flonase] 1 spray NS QDAY #1 bottle 04/28/20 Unknown Rx Acetaminophen [Non-Aspirin Extra 500 mg PO Q6HR PRN #30 tablet 12/28/20 Unknown Rx Strength] Metoclopramide [Reglan] 10 mg PO QID PRN #30 tablet 12/28/20 Unknown Rx ED Physical Exam - General General appearance: alert, in no apparent distress - Head Head exam: Present: atraumatic, normal inspection - Eye Eye exam: Present: normal appearance, PERRL - ENT ENT exam: Present: normal exam, normal external ear exam - Neck Neck exam: Present: normal inspection, full ROM - Respiratory Respiratory exam: Present: normal lung sounds bilaterally. Absent: chest wall tenderness, accessory muscle use - Cardiovascular Cardiovascular Exam: Present: regular rate - Neurological Exam Neurological exam: Present: alert, oriented X3 ED Medical Decision Making - Medical Decision Making 60-year-old man presents to the emergency room for suture removal of his left thumb that was placed about a week and a half ago as well as shortness of breath that he reported this morning. He felt like he was going to need to come and be seen earlier as his shortness of breath was worse. 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 He states his has upper respiratory infection. He reports that they are both Covid vaccinated. He denies any fever chills no other symptoms. 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 Sutures removed without any complications. Discussed with patient we will sit down and go over his chest x-ray. Patient verbalized understanding Critical care attestation.: If time is entered above; I have spent that time in minutes in the direct care of this critically ill patient, excluding procedure time. ED Disposition Clinical Impression: Shortness of breath, Visit for suture removal Disposition: HOME / SELF CARE / HOMELESS Is pt being admited?: No Does the pt Need Aspirin: No Condition: Stable
--- NOTE | 2021-06-02 13:35 | XRay Report ---
XR chest routine 2V INDICATION / CLINICAL INFORMATION: Shortness of breath. COMPARISON: 10/29/2019 FINDINGS: SUPPORT DEVICES: None. HEART /PULMONARY VASCULATURE: No significant abnormality. LUNGS / PLEURA: No significant pulmonary or pleural abnormality. No pneumothorax. ADDITIONAL FINDINGS: No significant additional findings. IMPRESSION: 1. No acute findings. Signer Name: Vel Stone MD Signed: 06/02/2021 1:30 PM Workstation Name: [id number]
[2021-06-02 14:07] VITALS: BP 127/84
== END 2021-06-02 14:17 | disposition home or self-care (01) ==
LOC: ED 12:39
DX: S61.012D Laceration without foreign body of left thumb without damage to nail, subsequent encounter (principal); R06.02 Shortness of breath; I10 Essential (primary) hypertension; E11.9 Type 2 diabetes mellitus without complications; M19.90 Unspecified osteoarthritis, unspecified site; F32.9 Major depressive disorder, single episode, unspecified; F41.9 Anxiety disorder, unspecified; Z79.899 Other long term (current) drug therapy; Z79.01 Long term (current) use of anticoagulants; X58.XXXD Exposure to other specified factors, subsequent encounter
CPT/HCPCS: 71046; 99283

== ENCOUNTER 2021-08-25 05:50 | Outpatient (CLI) | payer BC ==
[2021-08-25 06:48] LABS: Chol/HDL Ratio 3.78 %
== END 2021-08-25 05:51 | disposition home or self-care (01) ==
LOC: LAB 05:50
PROVIDERS: ATTEND Internal Medicine
DX: E11.9 Type 2 diabetes mellitus without complications (principal); E78.5 Hyperlipidemia, unspecified
CPT/HCPCS: 36415; 80061; 83036

== ENCOUNTER 2021-12-20 14:00 | Emergency (ER) | payer BC ==
[2021-12-20 14:10] VITALS: BP 143/75
--- NOTE | 2021-12-20 14:48 | Emergency Department Report ---
- General Chief Complaint: Laceration/Recheck/Suture Stated Complaint: CUT ON FINGER Time Seen by Provider: 12/20/21 14:27 Source: patient Mode of arrival: Ambulatory Limitations: No Limitations - History of Present Illness Initial Comments: 61-year-old white male presents to the emergency department for evaluation of laceration to left middle finger. 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 Patient states that he is on blood thinners at home, but the bleeding is controlled. -: Sudden Extremity Location: Left: Hand (Left middle finger) Patient Tetanus UTD: No Context: accidental Associated Symptoms: none - Related Data Previous Rx's Medication Instructions Recorded Last Taken Type ALPRAZolam [Xanax TAB] 0.25 mg PO DAILY PRN #15 tablet 03/02/19 Unknown Rx Acetaminophen [Acetaminophen TAB] 650 mg PO Q4H PRN tablet 03/02/19 Unknown Rx Apixaban [Eliquis] 2 tab PO Q12HR #10 tablet 03/02/19 Unknown Rx Citalopram [Celexa] 20 mg PO DAILY #30 03/02/19 02/27/19 Rx Pantoprazole [Protonix TAB] 40 mg PO HS #30 03/02/19 02/27/19 Rx dilTIAZem CD [Cardizem CD] 240 mg PO BID #60 03/02/19 02/28/19 Rx Bupropion HCl [Wellbutrin XL] 300 mg PO QAM 15 Days #15 06/07/19 Unknown Rx tab.er.24h Fluticasone [Flonase] 1 spray NS QDAY #1 bottle 04/28/20 Unknown Rx Acetaminophen [Non-Aspirin Extra 500 mg PO Q6HR PRN #30 tablet 12/28/20 Unknown Rx Strength] Metoclopramide [Reglan] 10 mg PO QID PRN #30 tablet 12/28/20 Unknown Rx Allergies Allergy/AdvReac Type Severity Reaction Status Date / Time No Known Allergies Allergy Verified 02/28/19 22:20 ED Review of Systems ROS: Stated complaint: CUT ON FINGER Other details as noted in HPI Comment: All other systems reviewed and negative Constitutional: denies: chills, fever, malaise, weakness Respiratory: denies: shortness of breath Cardiovascular: denies: chest pain, palpitations Gastrointestinal: denies: abdominal pain Skin: other (Left middle finger laceration) Neurological: denies: headache ED Past Medical Hx - Past Medical History Hx Hypertension: Yes Hx Congestive Heart Failure: No Hx Diabetes: Yes (2019) Hx Pulmonary Embolism: Yes Hx Arthritis: Yes Hx Psychiatric Treatment: Yes (anxiety, depression) Hx Asthma: No Hx COPD: No Hx HIV: No Additional medical history: PE - Surgical History Additional Surgical History: HERNIA - Social History Smoking Status: Never Smoker Substance Use Type: None - Medications Home Medications: Home Medications Medication Instructions Recorded Confirmed Last Taken Type ALPRAZolam [Xanax TAB] 0.25 mg PO DAILY PRN #15 tablet 03/02/19 Unknown Rx Acetaminophen [Acetaminophen TAB] 650 mg PO Q4H PRN tablet 03/02/19 Unknown Rx Apixaban [Eliquis] 2 tab PO Q12HR #10 tablet 03/02/19 Unknown Rx Citalopram [Celexa] 20 mg PO DAILY #30 03/02/19 02/28/19 02/27/19 Rx Pantoprazole [Protonix TAB] 40 mg PO HS #30 03/02/19 02/28/19 02/27/19 Rx dilTIAZem CD [Cardizem CD] 240 mg PO BID #60 03/02/19 02/28/19 02/28/19 Rx Bupropion HCl [Wellbutrin XL] 300 mg PO QAM 15 Days #15 06/07/19 Unknown Rx tab.er.24h Fluticasone [Flonase] 1 spray NS QDAY #1 bottle 04/28/20 Unknown Rx Acetaminophen [Non-Aspirin Extra 500 mg PO Q6HR PRN #30 tablet 12/28/20 Unknown Rx Strength] Metoclopramide [Reglan] 10 mg PO QID PRN #30 tablet 12/28/20 Unknown Rx ED Physical Exam - General Limitations: No Limitations General appearance: alert, in no apparent distress - Head Head exam: Present: atraumatic, normocephalic - Eye Eye exam: Present: normal appearance. Absent: conjunctival injection - Neck Neck exam: Present: normal inspection - Respiratory Respiratory exam: Absent: respiratory distress - Cardiovascular Cardiovascular Exam: Present: regular rate - GI/Abdominal GI/Abdominal exam: Absent: distended - Expanded Upper Extremity Exam Left Hand Wrist exam: Present: full ROM, laceration (Left middle finger). Absent: normal inspection (Left middle finger laceration), tenderness, swelling, ecchymosis Vascular: Present: normal capillary refill, radial pulse. Absent: vascular compromise - Back Exam Back exam: Present: normal inspection - Neurological Exam Neurological exam: Present: alert, oriented X3 - Psychiatric Psychiatric exam: Present: normal affect, normal mood - Skin Skin exam: Present: warm, dry, intact, normal color ED Course Vital Signs 12/20/21 14:08 Temperature 98.3 F Pulse Rate 87 Respiratory 18 Rate Blood Pressure 143/75 [Right] O2 Sat by Pulse 98 Oximetry - Laceration /Wound Repair Left Finger Wound Location: upper extremity (Left middle finger) Wound Length (cm): 2 Wound's Depth, Shape: superficial, linear Wound Explored: clean Irrigated w/ Saline (ccs): 20 Betadine Prep?: No Wound Repaired With: Dermabond Sterile Dressing Applied?: No Progress: Wound irrigated with normal saline then Dermabond applied. Wound well approximated. Patient tolerated well. ED Medical Decision Making - Medical Decision Making 61-year-old white male presents to the emergency department for evaluation of laceration to left middle finger. 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 Patient states that he is on blood thinners at home, but the bleeding is controlled. Left middle finger laceration, bleeding controlled. Laceration repaired with glue per procedure note. Patient tolerated well. Tdap updated. Patient discharged home to follow-up with primary care provider as needed. He is advised to follow-up in the emergency department if he notices any signs of infection or any other concerning symptoms. Verbalizes understanding of and agreement with plan of care. Critical care attestation.: If time is entered above; I have spent that time in minutes in the direct care of this critically ill patient, excluding procedure time. ED Disposition Clinical Impression: Laceration of finger of left hand Qualifiers: Encounter type: initial encounter Finger: middle finger Damage to nail status: without damage Foreign body presence: without foreign body Qualified Code(s): S61.213A - Laceration without foreign body of left middle finger without damage to nail, initial encounter Disposition: HOME / SELF CARE / HOMELESS Is pt being admited?: No Does the pt Need Aspirin: No Condition: Stable Instructions: Laceration Care, Adult, [id number], Tissue Adhesive Wound Care, [id number] Additional Instructions: Follow-up with primary care provider as needed. Return to the emergency department for any signs of infection or any other concerning symptoms. Referrals: TYLER JONAS MD [Referring] - 3-5 Days Time of Disposition: 14:52
[2021-12-20] MEDS: TETANUS,DIPH,PERTUSS(ACELL) VACCINE 0.5 ML SYRINGE IM ONE (15:31)
== END 2021-12-20 19:00 | disposition home or self-care (01) ==
LOC: ED 14:00
DX: S61.213A Laceration without foreign body of left middle finger without damage to nail, initial encounter (principal); W26.8XXA Contact with other sharp object(s), not elsewhere classified, initial encounter; Y93.89 Activity, other specified; Y92.89 Other specified places as the place of occurrence of the external cause; Y99.8 Other external cause status
CPT/HCPCS: 90471; 90715; 99282

== ENCOUNTER 2022-01-05 05:47 | Outpatient (CLI) | payer BC ==
[2022-01-05 06:41] LABS: Chol/HDL Ratio 3.81 %
== END 2022-01-05 05:48 | disposition home or self-care (01) ==
LOC: LAB 05:47
PROVIDERS: ATTEND Internal Medicine
DX: E11.9 Type 2 diabetes mellitus without complications (principal); E78.5 Hyperlipidemia, unspecified
CPT/HCPCS: 36415; 80061; 83036

== ENCOUNTER 2022-03-02 06:01 | Outpatient (CLI) | payer BC ==
--- NOTE | 2022-03-02 07:08 | XRay Report ---
CHEST 2 VIEWS INDICATION / CLINICAL INFORMATION: ACUUTE RESP.INFECTION. COMPARISON: 06/02/2021 FINDINGS: SUPPORT DEVICES: None. HEART / MEDIASTINUM: No significant abnormality. LUNGS / PLEURA: No significant pulmonary or pleural abnormality. No pneumothorax. ADDITIONAL FINDINGS: No significant additional findings. IMPRESSION: 1. No acute findings. Signer Name: Flynn Quintana MD Signed: 03/02/2022 7:03 AM Workstation Name: [id number]
== END 2022-03-02 06:02 | disposition home or self-care (01) ==
LOC: LAB 06:01
PROVIDERS: ATTEND Internal Medicine
DX: J06.9 Acute upper respiratory infection, unspecified (principal)
CPT/HCPCS: 36415; 71046; 84403

== ENCOUNTER 2022-05-04 05:52 | Outpatient (CLI) | payer BC ==
[2022-05-04 06:34] LABS: Basophils % (Auto) 0.6 % (0.0-1.8); Eosinophils # (Auto) 0.1 K/mm3 (0.0-0.4); Eosinophils % (Auto) 1.9 % (0.0-4.3); Hematocrit 44.2 % (35.5-45.6); Hemoglobin 14.7 gm/dl (11.8-15.2); Lymphocytes # (Auto) 1.6 K/mm3 (1.2-5.4); Lymphocytes % (Auto) 21.4 % (13.4-35.0); Mean Corpuscular HGB Conc 33 % (32-34); Mean Corpuscular Volume 88 fl (84-94); Monocytes # (Auto) 0.9 K/mm3 (0.0-0.8); Monocytes % (Auto) 12.5 % (0.0-7.3); Platelet Count 211 K/mm3 (140-440); Red Blood Count 5.02 M/mm3 (3.65-5.03); Red Cell Distribution Width 14.9 % (13.2-15.2)
[2022-05-04 06:49] LABS: Alanine Aminotransferase 36 units/L (7-56); Albumin 4.3 g/dL (3.9-5); Blood Urea Nitrogen 28 mg/dL (9-20); Calcium 9.2 mg/dL (8.4-10.2); Chol/HDL Ratio 3.78 %; HDL Cholesterol 41 mg/dL (40-59); Hemolysis Index 3; LDL Cholesterol,Direct 96 mg/dL (50-130)
[2022-05-04 06:52] LABS: BUN/Creatinine Ratio 40
[2022-05-04 07:28] LABS: Creatinine,Urine 131.1 mg/dL (0.1-20.0)
[2022-05-04 07:34] LABS: Microalbumin/Creatinine Ratio 9.1 ug/mg
== END 2022-05-04 05:53 | disposition home or self-care (01) ==
LOC: LAB 05:52
PROVIDERS: ATTEND Internal Medicine
DX: Z00.00 Encounter for general adult medical examination without abnormal findings (principal); E11.9 Type 2 diabetes mellitus without complications; I10 Essential (primary) hypertension; E78.5 Hyperlipidemia, unspecified; E66.01 Morbid (severe) obesity due to excess calories
CPT/HCPCS: 36415; 80053; 80061; 82043; 82306; 83036; 84153; 84402; 84443; 85025